=== PATIENT | male | born 1940 | race Caucasian/White ===

== ENCOUNTER 2018-07-11 09:44 | Inpatient (IN) ==
[2018-07-11] MEDS ORDERED: NS 1,000 ML IV PRN (09:51)
--- NOTE | 2018-07-11 09:51 | PROVIDER DOCUMENTATION ---
HPI-General Adult - General Stated Complaint: DECREASED PO INTAKE Time Seen by Provider: 07/11/18 09:46 Source: patient, family, EMS, old records Allergies/Adverse Reactions: Patient Allergies Allergy/AdvReac Type Severity Reaction Status Date / Time No Known Allergies Allergy Verified 03/14/18 08:43 Home Medications: Home Medication List Medication Instructions Recorded Confirmed Last Taken Type Bupropion HCl [Bupropion Xl] 150 mg PO DAILY 08/23/15 08/23/15 08/23/15 08:00 History LISINOpril [Prinivil] 5 mg PO DAILY 08/23/15 08/23/15 08/23/15 08:00 History Levothyroxine [Synthroid] 25 microgm PO DAILY 08/23/15 08/23/15 08/23/15 08:00 History Metoprolol Tartrate 12.5 mg PO DAILY 08/23/15 08/23/15 08/23/15 08:00 History Tamsulosin [Flomax] 0.4 mg PO DAILY 08/23/15 08/23/15 08/23/15 08:00 History Acetaminophen [Tylenol] 650 mg PO Q6H PRN PRN #0 tablet 08/26/15 Unknown Rx Docusate Sodium [Colace] 200 mg PO QHS #0 capsule 08/26/15 Unknown Rx Ferrous Sulfate 325 mg PO WBREAKFAST #0 tablet 08/26/15 Unknown Rx Rivaroxaban [Xarelto] 10 mg PO DAILY #35 tablet 08/26/15 Unknown Rx - History of Present Illness -Gen Adult Nature of Presenting Problems: per EMS, pt lives alone but is checked ~ daily by his son who called them this a.m. pt reportedly has been 'dwindling' in recent days w/ very poor po intake, new confusion. per son pt has hx of dementia but is normally meaningfully conversant. pt offers no complaints. pt has hx of hip fx in , per son "never fully recovered" and has been primarily wheelchair dependent since (?). pt has hx of hypothyroid and HBP. was on Xarelto in past. Review of Systems - Adult - REVIEW OF SYSTEMS - ADULT ROS:: unobtainable per condition Constitutional: reports: no symptoms reported Eyes: reports: no symptoms reported Ears, Nose, Mouth & Throat: reports: no symptoms reported Cardiovascular: reports: no symptoms reported Respiratory: reports: no symptoms reported Gastrointestinal: reports: no symptoms reported Genitourinary: reports: no symptoms reported Musculoskeletal: reports: no symptoms reported Integumentary: reports: no symptoms reported Neurological: reports: no symptoms reported Psychiatric: reports: no symptoms reported Endocrine: reports: no symptoms reported Hematologic/Lymphatic: reports: no symptoms reported Allergic/Immunologic: reports: no symptoms reported All Other Systems: Reviewed and Negative Past History - Adult - PAST MEDICAL HISTORY-ADULT Review of Records: reports: Old Records Reviewed Cardiovascular: reports: CAD - PRIOR SURGERIES/PROCEDURES Surgical/Procedure History: reports: hernia repair, other (open heart) - IMMUNIZATION STATUS Childhood Immunizations: See Nurse Assessment Flu Vaccine: See Nurse Assessment - FAMILY HISTORY Family History: reviewed, not pertinent Physical Exam-General - PHYSICAL EXAM-ADULT Initial Vital Signs Reviewed: Yes - CONSTITUTIONAL General Appearance: alert, no apparent distress, thin, slow to respond - EYES Eyes: PERRL/EOMI. negative: scleral icterus - HEAD, EARS, NOSE, MOUTH & THROAT HENMT: normocephalic/atraumatic - NECK Neck: full range of motion - RESPIRATORY Respiratory: lungs clear - CARDIOVASCULAR Cardiovascular: regular rate, rhythm - GASTROINTESTINAL (ABDOMEN) Abdominal Exam: non tender, soft - GENITOURINARY Male Genitalia: normal genitalia, circumcised Rectal Exam: deferred - LYMPHATIC Lymphatic: no adenopathy - MUSCULOSKELETAL Back Exam: no vertebral tenderness, other (patient has ~ 2% BSA stage 2 pre- sacral decubitus). negative: CVA tenderness Extremity: negative: deformity, tenderness Peripheral Pulses: radial (R): 2+, radial (L): 2+ - SKIN Integumentary: normal color, warm/dry. negative: normal turgor, cyanosis, ecchymosis, embolic lesions, purpura, rash - NEUROLOGIC Neurologic: head resident II-XII nml as tested, no motor/sensory deficits (no obvious asymmetry of tone, power.) - PSYCHIATRIC Psych/Mental Status: normal mood/affect, normal thought content, other (pt is responsive verbally to questioning at this time, but knows only that he's in an "[facility]," unsure why he is here. cannot name "Varinder" (son says this is not consistent w/ his baseline).) Progress - PLAN OF CARE/RESULTS Progress/Plan/Lab Results: U/A appears to show definite UTI. given MSE changes will consult for admission. needs wound care and plan for ongoing OP wound care for sacral decubitus. discussed w/ Estrada (Hospitalist service) who agreed to admit (Dr. Hendricks). Result Diagrams: 07/11/18 10:10 07/11/18 10:10 Departure - Departure Date of Disposition Decision: 07/11/18 Time of Disposition Decision: 13:19 DIAGNOSIS: UTI (urinary tract infection), Altered mental status, Sacral decubitus ulcer, stage II Disposition: ADMITTED INPATIENT 09 Certified Medical Emergency: Emergent Condition: Stable Referrals and Follow-Ups: Betsy Batista MD [Primary Care Provider] - - Critical Care Note This patient required my direct & personal management of CC.: No Attestation - Physician/ MILLER Attestation The physician spent face to face time with patient:: Yes Advanced Practice Provider documentation review:: Supervising physician onsite and consulted in the evaluation and care of this patient. The physician did have a face to face encounter with the patient.
[2018-07-11 10:34] LABS: BASO# 0.01 X1000 (0.0-0.2); BASO% 0.1 % (0.0-0.8); EOS# 0.04 X1000 (0.0-0.7); EOS% 0.3 % (0.0-10.0); HEMATOCRIT 43.6 % (42.0-52.0); HEMOGLOBIN 14.8 g/dL (14.0-18.0); IMM GRAN# 0.03 X1000 (0.0-0.04); IMM GRAN% 0.3 % (0.0-0.5); LYMPH# 0.91 X1000 (1.2-3.4); LYMPH% 7.6 % (20.5-51.1); MCH 29.5 PG (27-31); MCHC 33.9 g/dL (33-37); MCV 86.9 FL (81-99); MONO% 5.9 % (1.7-9.3); NEUT# 10.25 X1000 (1.4-6.5); NEUT% 85.8 % (42.2-75.2); PLT 127 X1000 (130-400); RBC 5.02 XMIL (4.7-6.1); RDW 13.4 % (11.5-14.5); WBC 11.94 X1000 (4.8-10.8)
[2018-07-11 10:41] LABS: INR 1.03; PROTIME 14.3 Seconds (11.0-16.0)
[2018-07-11 10:42] LABS: PTT 31.6 Seconds (22.3-41.8)
[2018-07-11 10:49] LABS: URINE SOURCE CLEAN CATCH
[2018-07-11 10:52] LABS: AGAP 14; ALB/GLOB RATIO 1.1; ALBUMIN 3.5 g/dL (3.5-5.0); ALKALINE PHOSPHATASE 96 U/L (32-122); BUN 29 mg/dL (8-22); CALCIUM 9.4 mg/dL (8.8-10.2); CHLORIDE 96 mmol/L (98-107); COSMO 275; CREATININE 0.9 mg/dL (0.7-1.2); ESTIMATED GFR > 60; GLUCOSE 73 mg/dL (70-104); GOT 272 U/L (10-34); GPT 70 U/L (10-44); MAGNESIUM 1.9 mg/dL (1.5-2.7); POTASSIUM 4.7 mmol/L (3.5-5.1); SODIUM 135 mmol/L (136-145); TCO2 25 mmol/L (25-35); TOTAL BILIRUBIN 1.01 mg/dL (0.20-1.00); TOTAL PROTEIN 6.8 g/dL (6.3-8.3)
[2018-07-11 11:02] LABS: T4 6.96 ug/dL (4.60-12.00)
--- NOTE | 2018-07-11 11:02 | Diag Imaging Result Doc PS360 ---
CT HEAD W/O CONTRAST - 07/11/2018 INDICATION: altered MSE COMPARISON: 08/25/2015 FINDINGS: There is grossly stable moderate diffuse atrophy. There is worsening, now severely advanced periventricular white matter chronic microvascular disease. Stable old lacunae in the left basal ganglia. No intracranial mass or hemorrhage. IMPRESSION: Worsening chronic microvascular disease of the cerebral white matter. No acute abnormality. This exam was performed using automated exposure control, adjustment of mA or kV according to patient size, and/or use of iterative reconstruction technique Electronically signed by Remy De Dios 07/11/2018 11:00 AM
[2018-07-11 11:06] LABS: BILIRUBIN URINE NEGATIVE (NEGATIVE); BLOOD URINE LARGE (NEGATIVE); CLARITY CLOUDY (CLEAR); COLOR YELLOW; GLUCOSE URINE NEGATIVE (NEGATIVE); KETONE URINE 15 mg/dL (NEGATIVE); LEUKOCYTES URINE LARGE (NEGATIVE); NITRITE URINE POSITIVE (NEGATIVE); PROTEIN URINE TRACE mg/dL (NEGATIVE); UROBILINOGEN URINE 0.2 EU/dL (0.2-1.0)
[2018-07-11 11:06] LABS: TSH 6.37 uIUmL (0.27-4.20)
--- NOTE | 2018-07-11 11:06 | Diag Imaging Result Doc PS360 ---
EXAM: CHEST-PORTABLE HISTORY: stroke like symptoms TECHNIQUE: Portable chest COMPARISON: 08/23/2015 FINDINGS: The lungs are well expanded. The heart is not enlarged. There are sternal wires and surgical clips. The vessels are not distended. There are no infiltrates. Mild increased interstitial markings believed to be fibrosis. No effusion identified. IMPRESSION: Fibrosis Electronically signed by Samy Espinosa 07/11/2018 11:03 AM
[2018-07-11 11:10] LABS: URINE BACTERIA 3+ /HFP; URINE EPITHELIAL CELLS <10 /HPF (<10); URINE RBC 20-40 /HPF (<10); URINE WBC TNTC /HPF (<10)
--- NOTE | 2018-07-11 13:37 | EKG Report ---
Test Performed on : 07/11/2018 1:06:03 PM Test Reason : Stroke like symptoms Blood Pressure : / mmHG Vent. Rate : 064 BPM Atrial Rate : 064 BPM P-R Int : 206 ms QRS Dur : 080 ms QT Int : 420 ms P-R-T Axes : 096 050 075 degrees QTc Int : 433 ms Normal sinus rhythm. Low voltage QRS Septal infarct (cited on or before 23-AUG-2015) Abnormal ECG When compared with ECG of 23-AUG-2015 19:23, ST no longer depressed in Anterior leads Nonspecific T wave abnormality, worse in Lateral leads QT has lengthened Unconfirmed Result
[2018-07-11] MEDS ORDERED: ZOFRAN IV PRN (13:56)
[2018-07-11] MEDS ORDERED: TYLENOL PO PRN (13:56)
[2018-07-11] MEDS ORDERED: NS 1,000 ML IV ONE (13:56)
[2018-07-11] MEDS: ROCEPHIN 1 GM in NS 50 ML IV SCH (14:15)
[2018-07-11 14:29] LABS: UR AMPHETAMINES QUAL NONE DETECTED (NONE DETECT); UR BARBITUATES QUAL NONE DETECTED (NONE DETECT); UR BENZODIAZEPIN QUAL NONE DETECTED (NONE DETECT); UR CANNABINOIDS QUAL NONE DETECTED (NONE DETECT); UR COCAINE QUAL NONE DETECTED (NONE DETECT); UR METHADONE QUAL NONE DETECTED (NONE DETECT); UR OPIATES QUAL NONE DETECTED (NONE DETECT); UR OXYCODONE QUAL NONE DETECTED (NONE DETECT); UR PCP QUAL NONE DETECTED (NONE DETECT)
--- NOTE | 2018-07-11 14:32 | Diag Imaging Result Doc PS360 ---
CT THORAX W/O CONTRAST - 07/11/2018 INDICATION: Fibrosis COMPARISON: Chest x-ray 07/11/2018 FINDINGS: There is severe COPD. There is rather advanced pulmonary fibrosis with honeycombing in the lung bases. Airways are clear. No nodules or infiltrates. There are CABG changes. Heart and great vessels are otherwise normal. There is left renal hydronephrosis. There is a tiny calcified gallstone in the gallbladder. IMPRESSION: 1. Severe COPD. Severe pulmonary fibrosis. 2. Left renal hydronephrosis, the reason is unclear. 3. Tiny gallstone in the gallbladder. This exam was performed using automated exposure control, adjustment of mA or kV according to patient size, and/or use of iterative reconstruction technique Electronically signed by Remy De Dios 07/11/2018 2:30 PM
[2018-07-11 15:04] LABS: ALLEN TEST NO; BE -1.4 mmoll (-3.0-3.0); BLOOD TYPE ARTERIAL; HCO3-(ACT) 23.7 mmoll (20.0-26.0); METHB 0.6 % (0.0-1.5); O2(CT) 19.4 mL/dL (15.0-23.0); O2HB 92.6 % (95.0-99.0); PCO2(98.6) 30 mmHg (35-45); PO2(98.6) 67 mmHg (60-100); SAMPLE BLOOD; SAO2 94.6 % (95.0-100.0); THB 14.9 g/dL (11.5-17.4); pH(98.6) 7.46 (7.35-7.45)
[2018-07-11] MEDS: DUONEB (A & A) INH SCH ×3 (15:05→23:03)
[2018-07-11 15:07] LABS: MODALITY ROOM AIR
--- NOTE | 2018-07-11 16:08 | HISTORY AND PHYSICAL ---
PCP: Dr. Awan CHIEF COMPLAINT: Altered mentation. HISTORY OF PRESENT ILLNESS: Mr. Hahn is a 78-year-old male with a history of dementia, COPD, nicotine dependence, coronary artery disease, atrial fibrillation, hypothyroidism, who presents to the ER via his son with decreased mentation and responsiveness over the past few days. Mr. Hahn is typically wheelchair bound but lives by himself. Over the past few days every time his son comes to check on him he is a bit more lethargic and has not been eating or drinking much this morning. He was a bit more lethargic and his son felt it was necessary to bring him to the ER. He also has a decubitus ulcer of the sacrum. The patient , at this time is nonverbal, and not really following commands well, but his said his baseline is a bit better than that. There has not been any report of fevers. He has not had any nausea or vomiting. No diarrhea. Otherwise review of systems is fairly difficult to obtain at this time. His laboratory data and diagnostic evaluation is largely unremarkable. He does have a very minimal elevated white count, slightly thrombocytopenic and some mildly elevated liver function tests; however, he does have a clear and significant urinary tract infection. Given the failure to thrive, the UTI, and altered mentation it is felt the patient would need inpatient admission. PAST MEDICAL HISTORY: 1. COPD. 2. CAD. 3. Reports of atrial fibrillation, unclear if he is on anticoagulation. 4. Continued nicotine dependence. 5. Hypothyroidism. SURGICAL HISTORY: Coronary artery bypass grafting and hernia repair. SOCIAL HISTORY: He lives alone. His son checks on him daily. He does have a remote history of alcohol dependence, but no current alcohol or drug use per the son. He is retired from [employer] and [employer]. FAMILY HISTORY: Noncontributory at this time. ALLERGIES: No known drug allergies. HOME MEDICATIONS: No list has been compiled as of yet. PHYSICAL EXAMINATION: VITAL SIGNS: Blood pressure 135/76. Heart rate 62. Respiratory rate 14. O2 sat 96% on nasal cannula. GENERAL: This is a chronically ill, frail appearing, 78-year-old, male lying on the hospital bed in no acute distress, but clear encephalopathic. NEUROLOGIC: The patient's eyes open spontaneously. He does not follow commands and is nonverbal. He does make nonsensical sounds at times. HEENT: Head is atraumatic and normocephalic. Pupils are equal, round, and reactive to light. Oral mucosa is dry. NECK: Trachea is midline. There is no JVD. CHEST: Diminished at the bases but clear to auscultation. CV: Regular rate and rhythm. S1, S2 is noted. GI: Soft, nondistended, nontender. Bowel sounds are hypoactive. EXTREMITIES: No edema. Pulses 1+ bilaterally. DIAGNOSTIC DATA: Head CT shows chronic changes, nothing acute. EKG shows normal sinus rhythm, nonspecific T wave flattening. Chest x-ray shows mild increased interstitial markings believed to be fibrosis, sternal wires, and surgical clips present, nothing else acute. WBC 11.94, hemoglobin 14.8, hematocrit 43.6, platelet count 127. INR 1.03. Sodium 135, potassium 4.7 , chloride 96, CO2 25, anion gap 14, BUN 29, creatinine 0.9, glucose 73. Calcium 9.4, magnesium 1.9, T bili 1.01, AST 72, ALT 70, alk phos 96. Troponin negative. TSH 6.37, T4 6.96. UA clear, urinary tract infection. ASSESSMENT AND PLAN: 1. Metabolic encephalopathy: Likely a combination of volume depletion, protein calorie malnutrition, and urinary tract infection. Head CT does not show anything acute. We will check an ABG, ammonia level, and drug screen, monitor neuro status, and continue IV fluids and antibiotics for UTI. 2. Urinary tract infection: We will add Rocephin, cultures are pending. 3. Severe protein calorie malnutrition, failure to thrive: We have consulted physical therapy, social work, and nutrition. We will continue diet, add supplementation if needed, we will check iron studies, vitamin D, and treat accordingly. 4. Coronary artery disease: No evidence of angina or acute coronary syndrome at this time. We will monitor tele. 5. Hypothyroidism: We will continue Synthroid once dosage is verified. 6. Elevated liver function tests: We will check a hepatitis panel, alcohol level was already done and found to be negative. Toxicology screen is pending. Abdominal exam is benign. We will monitor for now. Would consider abdominal imaging if any worsening. 7. Deep venous thrombosis prophylaxis with SCDs. Further recommendations to follow. Dictated by BARBARA Deleon for Arslan Hendricks MD cc: BARBARA Deleon Agree with H and P as above. the following is my own face to face assessment. Patient with advancing dementia and debility for several years but significantly decreased PO intake and increasing confusion over the last few days. awake but encephalopathic on exam, following no commands but moving all extremities, no clear focal deficits. initial workup suggesting metabolic encephalopathy due to underlying dementia and acute illness with UTI and decubitus ulcers. discussed situation with patient's son who looks in on him frequently and he is beginning the process of looking into assisted living vs other placement. [facility]
[2018-07-11 16:11] LABS: PREALBUMIN 11.3 mg/dL (20-40)
[2018-07-11 16:31] LABS: FERRITIN 928 ng/mL (30-400)
[2018-07-12] MEDS: NS 1,000 ML IV SCH ×2 (01:52→02:40)
[2018-07-12] MEDS ORDERED: CALMOSEPTINE OINTMENT TOP PRN (03:27)
[2018-07-12] MEDS: DUONEB (A & A) INH SCH ×6 (03:28→23:19)
[2018-07-12 07:38] LABS: HEMATOCRIT 42.1 % (42.0-52.0); HEMOGLOBIN 14.2 g/dL (14.0-18.0); MCH 29.9 PG (27-31); MCHC 33.7 g/dL (33-37); MCV 88.6 FL (81-99); MPV 10.9 FL (7.4-10.4); RBC 4.75 XMIL (4.7-6.1); RDW 13.5 % (11.5-14.5); WBC 7.74 X1000 (4.8-10.8)
[2018-07-12 08:02] LABS: AGAP 15; ALBUMIN 3.2 g/dL (3.5-5.0); ALKALINE PHOSPHATASE 88 U/L (32-122); BUN 22 mg/dL (8-22); CALCIUM 8.7 mg/dL (8.8-10.2); CHLORIDE 102 mmol/L (98-107); COSMO 280; CREATININE 0.7 mg/dL (0.7-1.2); ESTIMATED GFR > 60; GLUCOSE 74 mg/dL (70-104); GOT 205 U/L (10-34); GPT 65 U/L (10-44); POTASSIUM 3.5 mmol/L (3.5-5.1); SODIUM 139 mmol/L (136-145); TCO2 22 mmol/L (25-35); TOTAL BILIRUBIN 0.64 mg/dL (0.20-1.00); TOTAL PROTEIN 6.3 g/dL (6.3-8.3)
[2018-07-12] MEDS ORDERED: LOVENOX SUBQ SCH (09:00)
[2018-07-12] MEDS ORDERED: XARELTO PO SCH (09:43)
[2018-07-12 10:11] LABS: HEPATITIS PROFILE ACUTE SEE COMMENTS
[2018-07-12] MEDS: CALMOSEPTINE OINTMENT TOP SCH ×3 (10:39→18:48)
[2018-07-12] MEDS: FLOMAX PO SCH (11:19)
[2018-07-12] MEDS: WELLBUTRIN XL PO SCH (11:19)
[2018-07-12] MEDS: SYNTHROID PO SCH (11:20)
[2018-07-12] MEDS: NICODERM PATCH TD SCH (14:48)
[2018-07-12] MEDS: ROCEPHIN 1 GM in NS 50 ML IV SCH (14:49)
--- NOTE | 2018-07-12 15:07 | PROGRESS NOTE ---
DATE: 07/12/2018 INTERVAL HISTORY: Patient slightly more awake and interactive but remains quite encephalopathic. Afebrile, no acute events overnight aside from mild sinus bradycardia. REVIEW OF SYSTEMS: Unable to obtain secondary patient mental status. LABS: White count 7.7, hemoglobin 14.2, hematocrit 42.1, sodium 139, potassium 3.5, chloride 102, bicarb 22, BUN 22, creatinine 0.7, magnesium 2.0, total bilirubin 0.64, AST 205, ALT 65, albumin 3.2, total protein 6.3, hepatitis panel negative. Chest CT with severe COPD and pulmonary fibrosis, mild left hydronephrosis without clear etiology. Head CT with significant chronic microvascular disease but no acute process. Chest x- ray with fibrosis, no acute process. Urine culture with gram-negative rods. VITALS: T-max 98.3 degrees, pulse 83 currently, 53 earlier. respirations 20, blood pressure 98/70, O2 saturation 99% on room air. EXAM: General: No acute distress. Vitals as above. HEENT: Normocephalic, atraumatic. Moist mucous membranes. No cervical adenopathy. Cardiovascular: Regular rate and rhythm. No murmurs, rubs, or gallops. Pulmonary: Slightly decreased air entry but otherwise clear to auscultation bilaterally, no wheezing. Abdomen: Soft, nontender, nondistended. Bowel sounds positive. Extremities: Peripheral pulses intact. No clubbing, cyanosis or edema. Neurologic: Exam somewhat limited by patient mental status, no facial asymmetry. Pupils equal, round, reactive to light and moving all extremities. No focal deficits identified. Psychiatric: Awake, alert but oriented to person only, slightly more cooperative than previous but still quite confused. Skin: No new rashes or lesions identified. ASSESSMENT AND PLAN: 1. Metabolic encephalopathy likely multifactorial with underlying dementia and acute infection with urinary tract infection. Does appear to be improving with antibiotics and fluids. Continue antibiotics and monitor. 2. Urinary tract infection on Rocephin. Appears to be improving. Leukocytosis resolved. Urine cultures growing gram-negative rods. 3. Protein calorie malnutrition and failure to thrive. Physical therapy, social work, nutrition consulted. Does appear to be doing okay with diet although he requires some assistance. 4. Atrial fibrillation, patient with paroxysmal atrial fibrillation had been normal sinus rhythm aside from mild sinus adan occasionally during this hospitalization. Continue monitor on telemetry. 5. Hypothyroidism, continue home Synthroid, thyroid studies unremarkable. 6. Elevated liver function tests. Hepatitis panel negative. Repeats essentially normal. May be related to mild dehydration on admission. 7. Hyponatremia mild and now resolved. Continue to monitor. 8. Tobacco abuse. Patient given patch and counseled on cessation. 9. Decubitus ulcers bandaged, wound care and physical therapy as above. 10. Possible hydronephrosis identified on CT. No clear obstruction noted. Will obtain ultrasound to clarify, may need to consider Urology so consult depending on findings . 11. Deep vein thrombosis prophylaxis SCDs. 12. Situational depression. Mood appears stable aside from confusion as above, continue home Wellbutrin. [facility]
[2018-07-12] MEDS ORDERED: SEROQUEL PO PRN (15:58)
[2018-07-12] MEDS ORDERED: GEODON PO PRN (17:17)
[2018-07-12] MEDS ORDERED: ATIVAN ONE (17:28)
[2018-07-12] MEDS ORDERED: GEODON ONE (17:29)
[2018-07-12] MEDS ORDERED: STERILE WATER INJ. ONE (17:30)
[2018-07-12] MEDS ORDERED: GEODON PRN (18:06)
[2018-07-12] MEDS: XARELTO PO SCH (18:47)
--- NOTE | 2018-07-12 21:41 | Diag Imaging Result Doc PS360 ---
US RENAL 2 (RETROPER) COMPLETE - 07/12/2018 INDICATION: ? hydronephrosis seen on CT TECHNIQUE: COMPARISON: CT from 07/11/2018 FINDINGS: There is a large round mass posterior to the urinary bladder in the midline of the pelvis. This measures 5.7 cm. This is heterogeneously hypoechoic. There is moderate left renal hydronephrosis. There is a nodular area in the midpole the right kidney measuring 2.2 cm. No hydronephrosis on the right. Renal sizes are normal. The right kidney measures 11.1 x 4.8 x 6.3 cm. The left kidney measures 11.7 x 5 x 6.6 cm. IMPRESSION: Large indeterminate mass in the pelvis near the midline. Smaller mass in the right kidney. Moderate left hydronephrosis. CT abdomen pelvis is recommended, preferably with intravenous contrast. Electronically signed by Remy De Dios 07/12/2018 9:39 PM
[2018-07-13] MEDS: CALMOSEPTINE OINTMENT TOP SCH ×5 (02:16→20:35)
[2018-07-13] MEDS: ATIVAN IV PRN ×4 (02:56→16:58)
[2018-07-13] MEDS: DUONEB (A & A) INH SCH ×6 (03:44→22:42)
[2018-07-13 06:29] LABS: HEMATOCRIT 42.3 % (42.0-52.0); HEMOGLOBIN 14.3 g/dL (14.0-18.0); MCH 30.1 PG (27-31); MCHC 33.8 g/dL (33-37); MCV 89.1 FL (81-99); MPV 10.4 FL (7.4-10.4); RBC 4.75 XMIL (4.7-6.1); RDW 13.8 % (11.5-14.5); WBC 7.39 X1000 (4.8-10.8)
[2018-07-13] MEDS: SYNTHROID PO SCH ×2 (06:40→09:51)
[2018-07-13 06:53] LABS: AGAP 13; ALB/GLOB RATIO 1.1; ALBUMIN 3.3 g/dL (3.5-5.0); ALKALINE PHOSPHATASE 91 U/L (32-122); BUN 18 mg/dL (8-22); CHLORIDE 105 mmol/L (98-107); COSMO 291; CREATININE 0.7 mg/dL (0.7-1.2); ESTIMATED GFR > 60; GLUCOSE 105 mg/dL (70-104); GOT 158 U/L (10-34); GPT 71 U/L (10-44); POTASSIUM 4.3 mmol/L (3.5-5.1); SODIUM 145 mmol/L (136-145); TCO2 27 mmol/L (25-35); TOTAL BILIRUBIN 0.56 mg/dL (0.20-1.00); TOTAL PROTEIN 6.4 g/dL (6.3-8.3)
[2018-07-13] MEDS: NICODERM PATCH TD SCH (09:51)
[2018-07-13] MEDS: FLOMAX PO SCH (09:51)
[2018-07-13] MEDS: WELLBUTRIN XL PO SCH (09:51)
--- NOTE | 2018-07-13 12:24 | PROGRESS NOTE ---
DATE: 07/13/2018 INTERVAL HISTORY: A patient with significant sundowning last night. Became highly agitated and became quite aggressive with nursing staff. He was given Seroquel with little effect. He was subsequently given Geodon, but continued to be agitated, eventually given Ativan with improvement in agitation. Somewhat somnolent this morning. No other acute events overnight. REVIEW OF SYSTEMS: Unable to obtain secondary to patient's mental status. LABORATORIES: WBC 7.3, hemoglobin 14.3, hematocrit 42.3. Bilirubin 0.56, AST 158, ALT 71, alkaline phosphatase 91. Complete metabolic panel otherwise unremarkable. OBJECTIVE: Vitals: Temperature maximum 98.3 degrees, pulse 60, respirations 20 , blood pressure 120/61, O2 saturation 100% on room air. General: No acute distress. Vitals: As above. HEENT: Normocephalic, atraumatic. Moist mucous membranes. No cervical adenopathy. Cardiovascular: Regular rate and rhythm. No murmurs, rubs, or gallops. Pulmonary: Slightly decreased air entry globally, but otherwise clear to auscultation bilaterally. No wheezing, rales, or rhonchi. Abdomen: Soft, nontender, nondistended. Bowel sounds positive. Extremities: Peripheral pulses intact. No clubbing, cyanosis, or edema. Neurologic: Limited by patient's mental status and lack of cooperation, but no facial asymmetry. Pupils equal, round, reactive to light. Moving all extremities spontaneously. No focal deficits identified. Psychiatric: Slightly somnolent, but easily arousable. Remains oriented to person only. Falls asleep when not continuously stimulated. Skin: No new rashes or lesions identified. ASSESSMENT AND PLAN: 1. Metabolic encephalopathy, multifactorial with underlying dementia and acute infection with urinary tract infection. Initially improving with antibiotics and fluids, but significant sundowning last night and subsequently had to be chemically sedated and somewhat somnolent this morning. We will minimize sedating medications as possible. Continue antibiotics and monitor. 2. Urinary tract infection, appears to be improving. Leukocytosis resolved. Urine culture growing Serratia marcescens resistant only to cefazolin, Macrobid, and intermediate to tobramycin. The patient on Rocephin, which it is sensitive to. We will continue Rocephin and monitor. 3. Protein calorie malnutrition and failure to thrive. Physical Therapy, Social Work and Nutrition consulted. Requires some assistance with feeding, but adequate p.o. intake so far here. 4. Atrial fibrillation. Patient with paroxysmal atrial fibrillation, but has been in normal sinus rhythm here. Continue to monitor on telemetry. 5. Hypothyroidism. Continue home Synthroid. Thyroid studies unremarkable. 6. Elevated liver function tests. Hepatitis panel negative. Repeat essentially normal. May be related to mild dehydration on admission. 7. Hyponatremia, mild and now resolved. Continue to monitor labs. 8. Tobacco abuse. Patient given nicotine patch and counseled on cessation. 9. Decubitus ulcers, bandaged. Wound care and physical therapy as above. 10. Hydronephrosis. Initial CT showing possible hydronephrosis, but no clear obstruction. Renal ultrasound acquired to clarify. Ultrasound showing a large mass posterior to the urinary bladder, approximately 5.7 cm, which is causing moderate left renal hydronephrosis. Also with nodular area in the midpole of the right kidney, but no hydronephrosis on the right. We will get a dedicated CT of the abdomen and ask Nephrology their opinion. 11. Situational depression. Mood appears stable aside from confusion. Continue home Wellbutrin. 12. Deep vein thrombosis prophylaxis. SCDs. [facility]
--- NOTE | 2018-07-13 14:04 | Diag Imaging Result Doc PS360 ---
CT ABD/PELVIS W/IV CONT ONLY - 07/13/2018 INDICATION: ? bladder mass. hydronephrosis COMPARISON: CT from 08/23/2015 FINDINGS: There is severe rectal stool impaction which is presumably the source of the masslike appearance on the ultrasound. The urinary bladder appears grossly normal. There is severe vascular disease of the abdominal aorta with mild dilation measuring about 2.5 cm. 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 No visible radiodense renal stones. There is rather severe left hydroureteronephrosis. There is a density in the region of the left ureter orifice which may represent a UVJ stone. There are moderate degenerative changes of the spine. No acute or suspicious bony lesion. There is severe COPD in the lung bases. There are dense bibasilar infiltrates left greater than right compatible with bronchopneumonia. There is advanced coronary artery disease. There are CABG changes. There is constipation throughout the colon but no bowel obstruction or free air. IMPRESSION: 1. Severe rectal stool impaction. Diffuse constipation of the colon. No suspicious pelvic mass. 2. Rather severe left hydroureteronephrosis. There is a small density at the region of the left ureteral orifice which may represent an obstructing left UVJ stone. 3. 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 This exam was performed using automated exposure control, adjustment of mA or kV according to patient size, and/or use of iterative reconstruction technique Electronically signed by Remy De Dios 07/13/2018 2:02 PM
[2018-07-13] MEDS: ROCEPHIN 1 GM in NS 50 ML IV SCH (14:26)
[2018-07-13] MEDS: XARELTO PO SCH (16:55)
[2018-07-14 02:22] LABS: BASO# 0.02 X1000 (0.0-0.2); BASO% 0.2 % (0.0-0.8); EOS# 0.02 X1000 (0.0-0.7); EOS% 0.2 % (0.0-10.0); HEMATOCRIT 45.9 % (42.0-52.0); HEMOGLOBIN 15.3 g/dL (14.0-18.0); IMM GRAN# 0.02 X1000 (0.0-0.04); IMM GRAN% 0.2 % (0.0-0.5); LYMPH# 1.02 X1000 (1.2-3.4); LYMPH% 10.5 % (20.5-51.1); MCH 29.1 PG (27-31); MCHC 33.3 g/dL (33-37); MCV 87.4 FL (81-99); MONO# 0.58 X1000 (0.11-0.59); MPV 10.3 FL (7.4-10.4); NEUT# 8.05 X1000 (1.4-6.5); NEUT% 82.9 % (42.2-75.2); PLT 175 X1000 (130-400); RBC 5.25 XMIL (4.7-6.1); RDW 13.5 % (11.5-14.5); WBC 9.71 X1000 (4.8-10.8)
[2018-07-14 02:37] LABS: INR 1.88; PROTIME 23.1 Seconds (11.0-16.0)
[2018-07-14 02:38] LABS: PTT 44.7 Seconds (22.3-41.8)
[2018-07-14] MEDS: DUONEB (A & A) INH SCH ×6 (03:52→23:01)
[2018-07-14 06:30] LABS: HEMATOCRIT 43.4 % (42.0-52.0); HEMOGLOBIN 14.6 g/dL (14.0-18.0); MCH 29.9 PG (27-31); MCHC 33.6 g/dL (33-37); MCV 88.9 FL (81-99); RBC 4.88 XMIL (4.7-6.1); RDW 13.7 % (11.5-14.5); WBC 7.97 X1000 (4.8-10.8)
[2018-07-14 06:47] LABS: INR 1.6; PROTIME 20.3 Seconds (11.0-16.0)
[2018-07-14] MEDS: SYNTHROID PO SCH (07:03)
[2018-07-14 07:15] LABS: AGAP 15; ALBUMIN 3.3 g/dL (3.5-5.0); ALKALINE PHOSPHATASE 94 U/L (32-122); BUN 15 mg/dL (8-22); CHLORIDE 104 mmol/L (98-107); COSMO 289; CREATININE 0.6 mg/dL (0.7-1.2); ESTIMATED GFR > 60; GLUCOSE 93 mg/dL (70-104); GOT 125 U/L (10-34); GPT 67 U/L (10-44); MAGNESIUM 1.9 mg/dL (1.5-2.7); POTASSIUM 3.3 mmol/L (3.5-5.1); SODIUM 145 mmol/L (136-145); TCO2 26 mmol/L (25-35); TOTAL BILIRUBIN 0.62 mg/dL (0.20-1.00); TOTAL PROTEIN 6.6 g/dL (6.3-8.3)
[2018-07-14] MEDS: FLOMAX PO SCH (08:54)
[2018-07-14] MEDS: NICODERM PATCH TD SCH (08:54)
[2018-07-14] MEDS: CALMOSEPTINE OINTMENT TOP SCH ×4 (08:55→20:55)
[2018-07-14] MEDS ORDERED: MILK OF MAGNESIA PO PRN (11:20)
[2018-07-14] MEDS: ROCEPHIN 1 GM in NS 50 ML IV SCH (14:04)
[2018-07-14] MEDS: MIRALAX PO SCH ×2 (14:04→20:54)
[2018-07-14] MEDS: DULCOLAX PR SCH (14:04)
--- NOTE | 2018-07-14 14:05 | PROGRESS NOTE ---
DATE: 07/14/2018 INTERVAL HISTORY: The patient remains quite confused. Somewhat somnolent today. Received Ativan earlier. Ativan now discontinued. Nursing reporting some hematuria earlier today. No other acute events overnight REVIEW OF SYSTEMS: Unable to obtain secondary to patient's mental status. LABS: WBC 7.9, hemoglobin 14.6, hematocrit 43.4, and platelets of 172. Sodium 145, potassium 3.3, BUN 15, creatinine 0.6, and glucose 93, total bilirubin 0.62, AST 125, ALT 67, alkaline phosphatase 94. IMAGING: CT abdomen and pelvis with severe constipation, likely rectal impaction. No clear pelvic mass; although there is significant streaking artifact related to patient's hip replacements. Also with severe left hydroureteronephrosis, with a small density at the region of the left ureter orifice, which may represent an obstructing left stone. Also with severe atherosclerosis of all the vessels with complete obstruction of the left common iliac artery. VITALS: T-max 98.1 degrees, pulse 77, respirations 16, blood pressure 128/71, O2 sat 95% on room air. OBJECTIVE: General: No acute distress. Vitals: As above. HEENT: Normocephalic, atraumatic. Moist mucous membranes. No cervical adenopathy. Cardiovascular: Regular rate and rhythm. No murmurs, rubs, or gallops. Pulmonary: Moderately decreased air entry throughout, but otherwise clear to auscultation bilaterally. No wheezing, rales, or rhonchi. Abdomen: Soft, nontender, nondistended. Bowel sounds decreased but positive. Extremities: Peripheral pulses intact. No clubbing, cyanosis, or edema. Neurologic: Limited by patient's mental status, but no facial asymmetry. Pupils are equal, round, and reactive to light. Occasional movement of head and all extremities spontaneously. No focal deficits identified. Psychiatric: Remains slightly somnolent, but arousable, oriented to person at best. Skin: No new rashes or lesions identified. ASSESSMENT AND PLAN: 1. Metabolic encephalopathy, multifactorial with underlying dementia, acute infection with urinary tract infection, constipation. Improved initially somewhat, but then had significant sundowning with agitation. Was given significant sedating medication. Discontinuing Ativan to see if he will wake up more. Continue antibiotics and monitor. 2. Urinary tract infection. No fever or leukocytosis resolved. Urine culture growing out Serratia marcescens, which is sensitive to Rocephin, which we will continue. 3. Left hydronephrosis, suspected based on ultrasound confirmed on CT. Urology consulted. Urology recommendations pending. 4. Questionable pelvic mass, possible bladder mass identified on ultrasound, but not identified on CT. Will await urology recommendations. 5. Protein calorie malnutrition and failure to thrive. 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 Require some assistance with feeding, but adequate p.o. intake overall. 6. Atrial fibrillation. Patient with paroxysmal atrial fibrillation, but has been normal sinus rhythm here. Continue telemetry. 7. Hypothyroidism. Continue home Synthroid. Thyroid studies unremarkable. 8. Elevated liver function tests. Hepatitis panel negative. Repeat essentially normal. 9. Hyponatremia, mild and resolved. Continue to monitor laboratories. 10. Decubitus ulcers bandaged. Wound care physical therapy as above. 11. Tobacco abuse. 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 12. Severe chronic obstructive pulmonary disease. Patient with impressive emphysema on CT. No wheezing, however, and does not appear to be in exacerbation. We will monitor and give DuoNeb as needed. 13. Deep vein thrombosis prophylaxis. Sequential compression devices.
[2018-07-14] MEDS: GEODON IM PRN (17:19)
[2018-07-14] MEDS: STERILE WATER INJ. INJ PRN (17:19)
--- NOTE | 2018-07-14 23:34 | CONSULTATION ---
DATE OF CONSULTATION: 07/14/2018 ATTENDING AND REFERRING PHYSICIAN: Hospitalist. HISTORY OF PRESENT ILLNESS: This 78-year-old male with multiple medical problems was admitted with mental status changes. The patient is demented and it is very difficult to understand what he says when he talks. His family is not at bedside at this time. His urine culture grew Serratia marcescens sensitive to the antibiotic that he is on. A renal ultrasound was obtained that revealed left hydronephrosis and a probable bladder mass. A followup CT scan confirmed the hydroureteronephrosis down to an obstructed area in the distal ureter possibly a stone but is very difficult to determine secondary to the artifact from his hip prosthesis. He does not have a bladder mass. He does have atrial fibrillation and was on Xarelto. PAST MEDICAL HISTORY: COPD, coronary artery disease, history of atrial fibrillation, hypothyroidism. CURRENT MEDICATIONS: Documented on the chart. PAST SURGICAL HISTORY: Coronary artery bypass grafting, hernia repair, bilateral hip prosthesis. SOCIAL HISTORY: He smokes cigarettes. No alcohol use. He lives alone but his family is very close. ALLERGIES: He has no known drug allergies. REVIEW OF SYSTEMS: Cannot be obtained because I do not think he understands the questions. PHYSICAL EXAMINATION: General: A very cachectic, age apparent white male, who is cooperative. HEENT: Normal for age. Lungs: Clear. Cardiovascular: Regular rate and rhythm. Tachycardic. Abdomen: Scaphoid, soft. No hepatosplenomegaly or masses. Normal bowel sounds. : Uncircumcised male. He is in a diaper. He has had a bowel movement. Both testes are down and palpably normal. Rectal: Deferred until surgery. Extremities: No clubbing, cyanosis, or edema. Neuro: No focal deficits. LABORATORY EVALUATION: Has a white count of 7.97, hemoglobin 14.6, hematocrit of 43.4, platelets are 172,000. Serum electrolytes are normal. His potassium is somewhat low at 3.3, his BUN is 15, his creatinine is 0.6. CT stone search is as noted in the HPI. His urine culture grew Serratia marcescens sensitive to Rocephin and Levaquin. IMPRESSION: 1. Urinary tract infection on Serratia marcescens. Continue IV antibiotics. 2. Left hydroureteronephrosis secondary to a distal obstruction possibly a stone. 3. Question of bladder mass on ultrasound that was probably stool. His CT scan appears normal. RECOMMEND: Cystoscopic exam with left retrograde ureteral pyelogram and remove the obstruction if possible with placement of a double-J stent. Hold Xarelto. I do not believe the patient understood what is being recommended. Will discuss this with his family. Thank you for this consultation. cc: Davidson James MD
[2018-07-15] MEDS: DUONEB (A & A) INH SCH ×5 (04:00→19:35)
[2018-07-15 06:00] LABS: HEMATOCRIT 45.6 % (42.0-52.0); HEMOGLOBIN 15.3 g/dL (14.0-18.0); MCH 29.5 PG (27-31); MCHC 33.6 g/dL (33-37); MCV 87.9 FL (81-99); MPV 10.5 FL (7.4-10.4); RBC 5.19 XMIL (4.7-6.1); RDW 13.8 % (11.5-14.5); WBC 13.63 X1000 (4.8-10.8)
[2018-07-15 06:17] LABS: AGAP 14; ALB/GLOB RATIO 1.2; ALBUMIN 3.4 g/dL (3.5-5.0); ALKALINE PHOSPHATASE 94 U/L (32-122); BUN 22 mg/dL (8-22); CALCIUM 8.4 mg/dL (8.8-10.2); CHLORIDE 108 mmol/L (98-107); COSMO 299; CREATININE 0.8 mg/dL (0.7-1.2); ESTIMATED GFR > 60; GLUCOSE 122 mg/dL (70-104); GOT 82 U/L (10-34); GPT 57 U/L (10-44); MAGNESIUM 2.1 mg/dL (1.5-2.7); POTASSIUM 3.6 mmol/L (3.5-5.1); SODIUM 148 mmol/L (136-145); TCO2 26 mmol/L (25-35); TOTAL BILIRUBIN 0.65 mg/dL (0.20-1.00); TOTAL PROTEIN 6.3 g/dL (6.3-8.3)
[2018-07-15] MEDS: SYNTHROID PO SCH (06:27)
[2018-07-15] MEDS: CALMOSEPTINE OINTMENT TOP SCH ×4 (09:00→22:37)
[2018-07-15] MEDS: FLOMAX PO SCH (09:14)
[2018-07-15] MEDS: MIRALAX PO SCH ×2 (09:14→22:37)
[2018-07-15] MEDS: NICODERM PATCH TD SCH (09:14)
[2018-07-15] MEDS: DULCOLAX PR SCH (09:15)
[2018-07-15] MEDS: STERILE WATER INJ. INJ PRN (10:58)
[2018-07-15] MEDS: GEODON IM PRN (10:58)
[2018-07-15] MEDS: ROCEPHIN 1 GM in NS 50 ML IV SCH (12:34)
--- NOTE | 2018-07-15 13:11 | PROGRESS NOTE ---
DATE: 07/15/2018 INTERVAL HISTORY: The patient is much more awake, cooperative, and conversant today. Did have a couple bowel movements this morning. Awaiting cystoscopy with possible stone removal and stent placement by Urology. Denies current pain, dyspnea, cough, nausea, vomiting. REVIEW OF SYSTEMS: A 12 point review of systems is negative except as per interval history. LAB: WBC 13.5, hemoglobin 15.3, hematocrit 45.6. Sodium 148, potassium 3.6, chloride 108, bicarb 26, BUN 22, creatinine 0.8, glucose 122. AST 82, ALT 57, alkaline phosphatase 94, albumin 3.4, total protein 6.3. VITAL SIGNS: T-max 98.6, pulse 67, respirations 16, blood pressure 103/56, O2 saturation 97% on room air. OBJECTIVE: General: No acute distress. Vital signs: As above. HEENT: Normocephalic, atraumatic. Moist mucous membranes. No cervical adenopathy. Cardiovascular : Regular rate and rhythm. No murmurs, rubs, or gallops. Pulmonary: Moderately decreased air entry throughout, but otherwise clear to auscultation bilaterally. Abdomen: Soft, nontender, nondistended. Bowel sounds decreased but positive. Extremities: Peripheral pulses intact. No clubbing, cyanosis, or edema. Neurologic: Speech difficult to understand because of patient's lack of teeth, but cranial nerves appear to be intact. Globally weak but no focal deficits. Psychiatric: Awake, alert, oriented to person and place but not time. Skin: Decubitus ulcers bandaged. No new rashes or lesions identified. ASSESSMENT AND PLAN: 1. Metabolic encephalopathy, multifactorial with underlying dementia, acute infection with urinary tract infection, constipation. Did have 1 episode of major sundowning with agitation and aggression and was given significant sedating medication. Was somewhat somnolent afterwards but much improved this morning. Continue antibiotics and monitor. 2. Urinary tract infection. No fever. Urine culture growing Serratia marcescens which is sensitive to Rocephin, which we will continue. Likely discharge on Rocephin when we get to that point. 3. Left hydronephrosis. Urology consulted and plans on a cystoscopy with stent placement. Appears to be a likely stone at the junction. Initially some concern for mass, but on CT it appears this is more likely related to significant constipation/stool impaction rather than mass. 4. Protein calorie malnutrition and failure to thrive. 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 Some decreased p.o. intake yesterday with somnolence, but much improved this morning. 5. Constipation. Patient with fairly severe constipation on CT. Giving a bowel regimen. Did have a couple of bowel movements this morning. We will repeat x-ray in the morning to reassess. 6. Atrial fibrillation. Patient with paroxysmal atrial fibrillation, but has been largely in normal sinus rhythm here. Continue telemetry. 7. Hypothyroidism. Continue home Synthroid. 8. Elevated liver function tests. Hepatitis panel negative. Repeat studies essentially normal. 9. Hyponatremia, resolved now. Sodium now actually slightly high. Suspect he may be getting slightly dry with decreased p.o. intake yesterday. P.o. intake appears to be improved today. If hypernatremia continues, then may consider giving additional fluids tomorrow. 10. Decubitus ulcers. Ulcers bandaged. Wound care and physical therapy as above. 11. Tobacco abuse. Patient given nicotine patch and counseled on cessation. 12. Severe chronic obstructive pulmonary disease. Patient with extensive emphysema on CT. No signs of exacerbation at this time. We will monitor and give DuoNeb as needed. 13. Deep vein thrombosis prophylaxis. Pharmapods. [facility]
[2018-07-16] MEDS: DUONEB (A & A) INH SCH ×7 (00:03→23:15)
[2018-07-16] MEDS: GEODON IM PRN (03:41)
[2018-07-16] MEDS: STERILE WATER INJ. INJ PRN (03:41)
[2018-07-16] MEDS: SYNTHROID PO SCH (06:38)
[2018-07-16 06:52] LABS: AGAP 11; ALBUMIN 3.1 g/dL (3.5-5.0); ALKALINE PHOSPHATASE 91 U/L (32-122); BUN 24 mg/dL (8-22); CALCIUM 8.1 mg/dL (8.8-10.2); CHLORIDE 103 mmol/L (98-107); COSMO 288; CREATININE 0.7 mg/dL (0.7-1.2); ESTIMATED GFR > 60; GLUCOSE 107 mg/dL (70-104); GOT 60 U/L (10-34); GPT 46 U/L (10-44); MAGNESIUM 1.9 mg/dL (1.5-2.7); POTASSIUM 3.6 mmol/L (3.5-5.1); SODIUM 142 mmol/L (136-145); TCO2 28 mmol/L (25-35); TOTAL BILIRUBIN 0.61 mg/dL (0.20-1.00); TOTAL PROTEIN 6.1 g/dL (6.3-8.3)
--- NOTE | 2018-07-16 08:15 | Diag Imaging Result Doc PS360 ---
EXAM: KUB ABDOMEN - 07/16/2018 HISTORY: constipation TECHNIQUE: KUB abdomen COMPARISON: 07/13/2018 CT abdomen/pelvis FINDINGS: There is a moderate to large amount retained fecal debris in the colon consistent with constipation. The rectal fecal impaction which was seen on the prior CT appears to have resolved. The bowel gas pattern otherwise appears nonspecific and nonobstructive. There is a stone noted at the right kidney. IMPRESSION: Constipation. Apparent resolution of prior rectal fecal impaction. Electronically signed by Lokesh Hughes 07/16/2018 8:12 AM
[2018-07-16] MEDS ORDERED: XYLOCAINE-MPF 2% ONE (11:33)
[2018-07-16] MEDS ORDERED: DIPRIVAN 1% ONE (11:33)
[2018-07-16] MEDS ORDERED: FEMARA PO SCH (12:00)
[2018-07-16] MEDS ORDERED: NEOSPORIN G.U. IRRIGANT ONE (12:08)
[2018-07-16] MEDS: ROCEPHIN 1 GM in NS 50 ML IV SCH (12:10)
[2018-07-16] MEDS ORDERED: NORCO-7.5 PO PRN (13:49)
--- NOTE | 2018-07-16 14:53 | Diag Imaging Result Doc PS360 ---
EXAM: FLUROSCOPY CYSTO 07/16/2018 HISTORY: LT. STONE, LASER, LT STENT PLACEMENT TECHNIQUE: 11 images, 16 seconds fluoroscopy time, 0.22 mGy. COMMENT: Ureteroscopy and stent placement were performed on the left by Dr. James. The stone which was apparently present at the UVJ on the left was removed during the procedure. There is an apparent stone or stones on the right side. IMPRESSION: Stone extraction and stent placement on the left. Right nephrolithiasis. Electronically signed by Jeff Seals 07/16/2018 2:50 PM
[2018-07-16] MEDS: CALMOSEPTINE OINTMENT TOP SCH ×3 (15:24→23:27)
[2018-07-16] MEDS: MIRALAX PO SCH ×2 (15:25→23:26)
[2018-07-16] MEDS: FLOMAX PO SCH (15:25)
[2018-07-16] MEDS: NICODERM PATCH TD SCH (15:25)
[2018-07-16] MEDS: DULCOLAX PR SCH (15:25)
[2018-07-16] MEDS: SEROQUEL PO SCH (23:26)
[2018-07-17] MEDS: GEODON IM PRN (03:13)
--- NOTE | 2018-07-17 03:28 | PROGRESS NOTE ---
DATE: 07/16/2018 INTERVAL HISTORY: The patient now is status post cystoscopy with removal of stone and left stent placement by urology this morning. Doing well after the procedure. Denies current pain. Lucero in place with good drainage. Denies nausea, vomiting, diarrhea, dysuria. Remains mildly but pleasantly confused. REVIEW OF SYSTEMS: A 12 point review of systems is negative except as per interval history. LABORATORY STUDIES: Sodium 142, potassium 3.6, BUN 24, creatinine 0.7, glucose 107. AST 60, ALT 46, total bilirubin 0.6. VITAL SIGNS: T-max 98.2 degrees, pulse 64, respirations 20, blood pressure 109/54, saturating 100% on room air. PHYSICAL EXAMINATION: General: No acute distress. Vitals: As above. HEENT: Normocephalic, atraumatic. Moist mucous membranes. No cervical adenopathy. The patient is edentulous. Cardiovascular: Regular rate and rhythm. No murmurs, rubs, or gallops. Pulmonary: Moderately decreased air entry throughout but otherwise clear to auscultation. Abdomen: Soft, nontender, nondistended. Bowel sounds positive. Extremities: Peripheral pulses intact. No clubbing, cyanosis, or edema. Neurologic: Speech difficult to understand secondary to being edentulous but cranial nerves appear to be intact. No focal deficits. Psychiatric: Awake, alert, and oriented to person and place but not time. Normal mood and affect. Skin: Sacral decubitus ulcer is bandaged. No new rashes or lesions identified. ASSESSMENT AND PLAN: 1. Metabolic encephalopathy, multifactorial with underlying dementia, acute infection, with urinary tract infection, and constipation, overall improved. Continue antibiotics and monitor. 2. Urinary tract infection. Remains afebrile. Urine culture growing Serratia marcescens, which is sensitive to Rocephin, which we will continue. Likely discharge on Omnicef when we get to that point. 3. Left hydronephrosis. Initial imaging somewhat questionable but eventually favored to represent obstructing stone. Urology consulted and performed cystoscopy with stone removal and stent placement earlier today. Initially some concern for mass but this is now favored to have been significant constipation/stool impaction rather than mass. 4. Protein calorie malnutrition and failure to thrive. Physical therapy, social work, and nutritional support on board. Good oral intake over the last couple days. 5. Constipation. Patient with fairly severe constipation on CT, improving on most recent x-ray. Continue bowel regimen as there is still some constipation seen. 6. Atrial fibrillation. Patient with paroxysmal atrial fibrillation, but has been largely in normal sinus rhythm on this hospitalization. Continue telemetry. 7. Hypothyroidism. Continue home Synthroid. 8. Elevated liver function tests. Hepatitis panel negative. Repeat studies trending down to near normal. No liver pathology identified on CT. Suspect fatty liver but we will monitor. 9. Hyponatremia, now resolved. Monitor labs. 10. Sickle decubitus ulcers. No signs of infection. Ulcer is bandaged. Wound care and physical therapy as above. 11. Tobacco abuse. Patient given a nicotine patch and counseled on cessation. 12. Severe chronic obstructive pulmonary disease. Patient with extensive emphysematous changes on CT. No signs of exacerbation at this time and oxygen saturation is acceptable on room air. We will monitor and give nebulizers as needed. 13. Deep venous thrombosis prophylaxis. Sequential compression devices.
[2018-07-17] MEDS: DUONEB (A & A) INH SCH ×6 (05:40→23:08)
[2018-07-17 06:02] LABS: BASO# 0.01 X1000 (0.0-0.2); BASO% 0.1 % (0.0-0.8); EOS# 0.13 X1000 (0.0-0.7); EOS% 1.7 % (0.0-10.0); HEMATOCRIT 40.7 % (42.0-52.0); HEMOGLOBIN 13.5 g/dL (14.0-18.0); IMM GRAN# 0.02 X1000 (0.0-0.04); IMM GRAN% 0.3 % (0.0-0.5); LYMPH# 1.63 X1000 (1.2-3.4); LYMPH% 21.4 % (20.5-51.1); MCH 29.4 PG (27-31); MCHC 33.2 g/dL (33-37); MCV 88.7 FL (81-99); MONO# 0.56 X1000 (0.11-0.59); MONO% 7.3 % (1.7-9.3); MPV 10.4 FL (7.4-10.4); NEUT# 5.28 X1000 (1.4-6.5); NEUT% 69.2 % (42.2-75.2); PLT 188 X1000 (130-400); RBC 4.59 XMIL (4.7-6.1); RDW 13.3 % (11.5-14.5); WBC 7.63 X1000 (4.8-10.8)
[2018-07-17 06:15] LABS: AGAP 11; BUN 17 mg/dL (8-22); CALCIUM 7.9 mg/dL (8.8-10.2); CHLORIDE 101 mmol/L (98-107); COSMO 281; CREATININE 0.8 mg/dL (0.7-1.2); ESTIMATED GFR > 60; GLUCOSE 102 mg/dL (70-104); POTASSIUM 3.5 mmol/L (3.5-5.1); SODIUM 140 mmol/L (136-145); TCO2 28 mmol/L (25-35)
[2018-07-17] MEDS: SYNTHROID PO SCH (06:43)
[2018-07-17] MEDS: CALMOSEPTINE OINTMENT TOP SCH ×4 (08:20→23:51)
--- NOTE | 2018-07-17 09:01 | OPERATIVE NOTE ---
PROCEDURE DATE: 07/16/2018 PREOPERATIVE DIAGNOSIS: Left distal ureteral obstruction with severe left hydroureteronephrosis. POSTOPERATIVE DIAGNOSES: 1. Left distal ureteral obstruction with severe left hydroureteronephrosis. 2. Severe anterior urethral stricture. PROCEDURES PERFORMED: 1. Urethral dilation. 2. Cystoscopic exam, left ureteroscopy, laser lithotripsy of a stone, stone basket extraction of fragments, placement of left double-J stent. 3. Placement of Lucero catheter. SURGEON: Davidson James M.D. ANESTHESIA: General via laryngeal mask. FINDINGS: Cystoscopic exam: Urethra with an approximate 10-Icelandic fossa navicularis stricture that was dilated to 22-Icelandic with the Kevin steel sounds. Prostate: Mild hypertrophy of the lateral lobes. Mildly elevated bladder neck, length approximately 3 cm. Bladder: Normal ureteral orifices bilaterally, with the left ureteral orifice bulging secondary to a distal ureteral mass. This was found to be a 10 mm stone. Grade 2 trabeculations. No papillary lesions. No diverticula. Left ureteroscopy reveals an 8 to 10 mm left distal stone with high- grade obstruction. Rectal exam reveals a prostate of about 30 grams, firm, but symmetrical. INDICATION FOR PROCEDURE: This 78-year-old male with increasing memory problems and confusion was noted to have significant left hydroureteronephrosis on CT stone search obtained for apparent abdominal pains. He has had bilateral hip replacements, and there was artifact in the area of the distal ureters, the reason for the obstruction could not be obtained. 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 General anesthesia via laryngeal mask was achieved. He was then placed in the low lithotomy position, and prepped and draped in the usual sterile fashion for cystoscopic exam. A 21-Icelandic sheath cystoscope was placed at the meatus, but would not advance. Closer inspection revealed a very tight fossa navicularis stricture. The Kevin steel sounds starting at 10- Icelandic was used to sequentially dilate this strictured area up to 22-Icelandic. The 21-Icelandic sheath cystoscope was then passed through the patient's urethra, prostate, and into the bladder with findings noted above. A 0.035 ZIPwire was passed through the cystoscope, engaged left ureteral orifice, and after some manipulation, was able to be pushed past the obstruction and up into the kidney. The cystoscope was removed, leaving the ZIPwire in place. The 7-Icelandic Storz semi-rigid ureteroscope was advanced to the patient's urethra, prostate, and into the bladder. A 0.035 Sensor wire was passed through the ureteroscope and into the left ureter. The ureteroscope was advanced over the Sensor wire, but beneath the ZIPwire up to the stone. The stone was impacted in the distal ureter, but with the placement of the wires, it was disimpacted and moved more proximal. The Sensor wire was removed. A 365 micron laser fiber was placed. The laser was set at 8 hertz and 8 scales, and the stone was fragmented. Approximately 100 joules was used. A 4- wire Nitinol basket was placed, and multiple passes were made to remove stone fragments. Some of these were sent to Pathology for analysis. The ureteroscope was removed. A 6-Icelandic, 28 cm double-J stent was passed over the ZIPwire and up into the kidney. The bladder end was directly visualized. The renal end was verified by fluoroscopic exam. Because of the patient's problem with confusion, the double-J stent removal string was removed. The bladder was drained. Cystoscope was removed. Rectal exam performed. He tolerated the procedure well. Estimated blood loss was 0. He was taken to the recovery room in good condition. cc: Davidson James MD
[2018-07-17] MEDS: MIRALAX PO SCH ×2 (14:21→23:51)
[2018-07-17] MEDS: FLOMAX PO SCH (15:21)
[2018-07-17] MEDS: ROCEPHIN 1 GM in NS 50 ML IV SCH (15:22)
[2018-07-17] MEDS: DULCOLAX PR SCH (16:23)
[2018-07-17] MEDS: PERIDEX MT SCH ×2 (16:23→23:51)
[2018-07-17] MEDS: NICODERM PATCH TD SCH (18:33)
[2018-07-17] MEDS: SEROQUEL PO SCH (23:50)
--- NOTE | 2018-07-18 05:35 | PROGRESS NOTE ---
DATE: 07/17/2018 SUBJECTIVE: The patient looks well. No major complaints. He is seen after surgery. OBJECTIVE: Blood pressure 111/72, heart rate 89, respiratory rate 16, and temperature 99 degrees.Cardiovascular: Regular rate and rhythm. Pulmonary: Bilateral breath sounds. Clear to auscultation. GI: Soft, nontender, and nondistended. Bowel sounds are positive. LABORATORY DATA: White count 7, hemoglobin and hematocrit 13 and 40. Basic was normal. PROBLEM LIST: 1. Left hydronephrosis and left ureterolithiasis. Urology has done a cystoscopy and ureteroscopy, and double J stent placement. Further orders will be per them afterwards. 2. Serratia marcescens urinary tract infection, currently sensitive to multiple medications including Rocephin. 3. Encephalopathy. He still seems a little bit confused but he is not belligerent or anything from that standpoint, and I think overall is improving. 4. Protein calorie malnutrition. We will continue nutritional supplementation. 5. Constipation. We will continue bowel regimen. 6. Atrial fibrillation. He has been stable on current medications. 7. Decubitus ulcers. We will continue wound care treatment. DISPOSITION: Unclear at this time. He does live alone. I am not sure how much he has been getting out of bed so we need to get a sense of his functional status. PT and OT have been consulted, but I see no documentation. Actually, I saw him yesterday and it does not look like he has done very much, but we will continue to follow and work with social work about discharge planning. Disposition is therefore uncertain at this time. I am not sure if he will need rehab services. I think he is approaching improvement. cc: Dat Fox MD
[2018-07-18] MEDS: DUONEB (A & A) INH SCH ×6 (05:39→23:10)
[2018-07-18 06:40] LABS: BASO# 0.03 X1000 (0.0-0.2); BASO% 0.4 % (0.0-0.8); EOS# 0.15 X1000 (0.0-0.7); HEMATOCRIT 41.7 % (42.0-52.0); HEMOGLOBIN 13.8 g/dL (14.0-18.0); IMM GRAN# 0.02 X1000 (0.0-0.04); IMM GRAN% 0.3 % (0.0-0.5); LYMPH# 2.19 X1000 (1.2-3.4); LYMPH% 29.6 % (20.5-51.1); MCH 29.6 PG (27-31); MCHC 33.1 g/dL (33-37); MCV 89.3 FL (81-99); MONO# 0.61 X1000 (0.11-0.59); MONO% 8.2 % (1.7-9.3); MPV 10.3 FL (7.4-10.4); NEUT% 59.5 % (42.2-75.2); PLT 240 X1000 (130-400); RBC 4.67 XMIL (4.7-6.1); RDW 13.4 % (11.5-14.5)
[2018-07-18] MEDS: SYNTHROID PO SCH (06:44)
[2018-07-18 07:20] LABS: AGAP 10; BUN 17 mg/dL (8-22); CALCIUM 8.6 mg/dL (8.8-10.2); CHLORIDE 102 mmol/L (98-107); COSMO 281; ESTIMATED GFR > 60; GLUCOSE 94 mg/dL (70-104); POTASSIUM 3.8 mmol/L (3.5-5.1); SODIUM 140 mmol/L (136-145); TCO2 28 mmol/L (25-35)
[2018-07-18] MEDS: FLOMAX PO SCH (08:31)
[2018-07-18] MEDS: MIRALAX PO SCH ×2 (08:31→20:52)
[2018-07-18] MEDS: NICODERM PATCH TD SCH (08:31)
[2018-07-18] MEDS: PERIDEX MT SCH ×2 (08:32→20:52)
[2018-07-18] MEDS: DULCOLAX PR SCH (08:32)
[2018-07-18] MEDS: CALMOSEPTINE OINTMENT TOP SCH ×4 (08:34→21:06)
[2018-07-18] MEDS: ROCEPHIN 1 GM in NS 50 ML IV SCH (14:48)
[2018-07-18] MEDS: SEROQUEL PO SCH (20:53)
--- NOTE | 2018-07-19 00:14 | PROGRESS NOTE ---
DATE: 07/18/2018 SUBJECTIVE: Patient has no major complaints. He is sitting up eating. He does seem a little bit confused but he is very pleasant. OBJECTIVE: Blood pressure 95/56, heart rate 63, respiratory 15, temperature 98.3 degrees 94 90% on room air.Cardiovascular: Regular rate and rhythm. Pulmonary: Bilateral breath sounds clear to auscultation. GI: Was soft, nontender, nondistended. Bowel sounds are positive. LAB: White count is 7, hemoglobin and hematocrit 13, 41, platelets of 240,000. Basic was normal. PROBLEM LIST: 1. Left hydronephrosis, hydroureter, urolithiasis. He is status post JJ placement, we will continue to follow. Dr. James is monitoring. 2. Serratia marcescens urinary tract infection. He is on Rocephin. Rocephin will be day 8 maybe complete 10 days and then will discontinue. 3. Encephalopathy with probably some underlying dementia. He seems stable currently. 4. Moderate protein calorie malnutrition. Will continue nutritional supplementation, monitor for improvement . 5. Atrial fibrillation, he is on regular medications now. He has previously been on Xarelto. I am not sure when we can reinitiate his medications. 6. Disposition. We will have to work with his insurance. They are not approving rehab but he is not able to get up and around on his own and he is a fall risk and he is on anticoagulation so I am not sure we have very many outpatient options for him. Continue to monitor. cc: Dat Fox MD
[2018-07-19] MEDS: DUONEB (A & A) INH SCH ×6 (03:10→23:20)
[2018-07-19] MEDS: LOVENOX SUBQ SCH (05:11)
[2018-07-19] MEDS: SYNTHROID PO SCH ×2 (05:11→06:16)
[2018-07-19 05:50] LABS: BASO# 0.03 X1000 (0.0-0.2); BASO% 0.4 % (0.0-0.8); EOS# 0.18 X1000 (0.0-0.7); EOS% 2.2 % (0.0-10.0); HEMATOCRIT 40.8 % (42.0-52.0); HEMOGLOBIN 13.5 g/dL (14.0-18.0); IMM GRAN# 0.02 X1000 (0.0-0.04); IMM GRAN% 0.2 % (0.0-0.5); LYMPH% 24.7 % (20.5-51.1); MCH 29.3 PG (27-31); MCHC 33.1 g/dL (33-37); MCV 88.5 FL (81-99); MONO# 0.69 X1000 (0.11-0.59); MONO% 8.5 % (1.7-9.3); MPV 10.1 FL (7.4-10.4); NEUT# 5.18 X1000 (1.4-6.5); PLT 228 X1000 (130-400); RBC 4.61 XMIL (4.7-6.1); RDW 13.4 % (11.5-14.5)
[2018-07-19 06:05] LABS: AGAP 12; BUN 18 mg/dL (8-22); CALCIUM 8.5 mg/dL (8.8-10.2); CHLORIDE 100 mmol/L (98-107); COSMO 278; ESTIMATED GFR > 60; GLUCOSE 104 mg/dL (70-104); POTASSIUM 3.8 mmol/L (3.5-5.1); SODIUM 138 mmol/L (136-145); TCO2 26 mmol/L (25-35)
[2018-07-19] MEDS: FLOMAX PO SCH (09:09)
[2018-07-19] MEDS: PERIDEX MT SCH ×2 (09:10→21:37)
[2018-07-19] MEDS: NICODERM PATCH TD SCH (09:10)
[2018-07-19] MEDS: DULCOLAX PR SCH (09:10)
[2018-07-19] MEDS: CALMOSEPTINE OINTMENT TOP SCH ×3 (09:10→18:55)
[2018-07-19] MEDS: MIRALAX PO SCH ×2 (09:10→21:37)
[2018-07-19] MEDS: ROCEPHIN 1 GM in NS 50 ML IV SCH (13:44)
[2018-07-19] MEDS: GEODON IM PRN (16:42)
[2018-07-19] MEDS: STERILE WATER INJ. INJ PRN (16:44)
[2018-07-19] MEDS: SEROQUEL PO SCH (21:34)
--- NOTE | 2018-07-19 23:38 | PROGRESS NOTE ---
DATE: 07/19/2018 SUBJECTIVE: The patient has no focal complaints. OBJECTIVE: Vital Signs: Blood pressure is 95/61, heart rate 74, respiratory rate 16, temperature 97.3 degrees. Cardiovascular: Regular rate and rhythm. Pulmonary: Bilateral breath sounds. Clear to auscultation. GI: Soft, nontender, nondistended. Bowel sounds were positive. LABORATORY STUDIES: White count 8, hemoglobin and hematocrit 13 and 40, platelets 228,000. Basic was normal. PROBLEM LIST: 1. Dementia, encephalopathy. He had a kind of bad reaction today, got very agitated, and not quite sure. He had some p.r.n. Geodon, which he responded to fairly well. I am going to go up on his Seroquel at night. There is not clearly a trigger for this. His white count is normal. No fevers. We will continue to monitor. We may need to consider a geriatric psychiatry evaluation. 2. Left hydronephrosis, hydroureter. He is status post J-J placement, and he seems to be stable. 3. Serratia marcescens urinary tract infection. He is on Rocephin. This will be day 9, I think, of that. I am going to go ahead and repeat his UA, just to make sure nothing changed. Hematuria is normal in this setting because he has J-J stents. We do not need to abnormally interpret this as disease, because it is a normal part of having the stent in place. 4. Moderate protein calorie malnutrition. We are going to continue supplementations. 5. Left hydronephrosis, hydroureter, urolithiasis. He seems to be doing good from that standpoint. DISPOSITION: Still pending rehab, but if he continues to be agitated, I think we will have to consider possibly a geriatric psychiatry referral. We will continue to follow. cc: Dat Fox MD
[2018-07-20] MEDS: CALMOSEPTINE OINTMENT TOP SCH ×4 (03:43→18:59)
[2018-07-20] MEDS: DUONEB (A & A) INH SCH ×6 (06:14→23:30)
[2018-07-20] MEDS: SYNTHROID PO SCH (06:48)
[2018-07-20] MEDS: LOVENOX SUBQ SCH (06:48)
[2018-07-20 07:00] LABS: BASO# 0.02 X1000 (0.0-0.2); BASO% 0.2 % (0.0-0.8); EOS# 0.18 X1000 (0.0-0.7); EOS% 1.8 % (0.0-10.0); HEMOGLOBIN 14.5 g/dL (14.0-18.0); IMM GRAN# 0.03 X1000 (0.0-0.04); IMM GRAN% 0.3 % (0.0-0.5); LYMPH# 1.85 X1000 (1.2-3.4); LYMPH% 18.5 % (20.5-51.1); MCH 29.1 PG (27-31); MCV 88.4 FL (81-99); MONO# 0.75 X1000 (0.11-0.59); MONO% 7.5 % (1.7-9.3); MPV 10.6 FL (7.4-10.4); NEUT# 7.17 X1000 (1.4-6.5); NEUT% 71.7 % (42.2-75.2); PLT 247 X1000 (130-400); RBC 4.98 XMIL (4.7-6.1); RDW 13.6 % (11.5-14.5)
[2018-07-20 07:05] LABS: URINE SOURCE CLEAN CATCH
[2018-07-20 07:08] LABS: BILIRUBIN URINE NEGATIVE (NEGATIVE); BLOOD URINE MODERATE (NEGATIVE); COLOR YELLOW; GLUCOSE URINE NEGATIVE (NEGATIVE); KETONE URINE NEGATIVE (NEGATIVE); LEUKOCYTES URINE MODERATE (NEGATIVE); NITRITE URINE NEGATIVE (NEGATIVE); PROTEIN URINE 70 mg/dL (NEGATIVE); SP GRAVITY URINE 1.008; TURBIDITY URINE HAZY (CLEAR); UROBILINOGEN URINE NORMAL (NORMAL)
[2018-07-20 07:09] LABS: UR EPITHELIAL CELLS <10 /HPF (<10); URINE BACTERIA NEGATIVE /HPF; URINE RBC TNTC /HPF (<10); URINE WBC 20-40 /HPF (<10)
[2018-07-20 07:16] LABS: AGAP 12; BUN 16 mg/dL (8-22); CALCIUM 8.9 mg/dL (8.8-10.2); CHLORIDE 104 mmol/L (98-107); COSMO 285; CREATININE 0.9 mg/dL (0.7-1.2); ESTIMATED GFR > 60; GLUCOSE 107 mg/dL (70-104); SODIUM 142 mmol/L (136-145); TCO2 26 mmol/L (25-35)
[2018-07-20] MEDS: FLOMAX PO SCH (09:15)
[2018-07-20] MEDS: PERIDEX MT SCH ×2 (09:15→22:41)
[2018-07-20] MEDS: DULCOLAX PR SCH (09:15)
[2018-07-20] MEDS: MIRALAX PO SCH ×3 (09:15→22:43)
[2018-07-20] MEDS: NICODERM PATCH TD SCH (09:15)
[2018-07-20] MEDS: ROCEPHIN 1 GM in NS 50 ML IV SCH (13:27)
--- NOTE | 2018-07-20 19:09 | PROGRESS NOTE ---
DATE: 07/20/2018 SUBJECTIVE: The patient has no major complaints. OBJECTIVE: Vital Signs: Blood pressure is 111/71, heart rate 73, respiratory rate 16, temperature 97.4, 98% on room air. Cardiovascular: Regular rate and rhythm. Pulmonary: Bilateral breath sounds. Clear to auscultation. Gastrointestinal: Soft, nontender, nondistended. Bowel sounds are positive. LABORATORY DATA: White count is 10, hemoglobin and hematocrit 14 and 44, platelets 247,000. Basic was normal. PROBLEM LIST: 1. Dementia with encephalopathy. He seems to be better today. There are not any issues from that standpoint. He seems to be stable. We did go up on his Seroquel, that may have been enough. 2. Left hydronephrosis, hydroureter status post JJ stent placement. Urology is following. He seems to be doing okay. 3. Serratia marcescens urinary tract infection. He is on Rocephin. This will be day 10. I think we could consider stopping it after today's dose. Clinically, he seems to have stabilized but we will see how things look. In any case, we will stop after tomorrow's dose. Discharge condition is stable. We are looking at rehab options, although he has no place at this point. We are working with insurance company to help us with that. 4. Moderate protein calorie malnutrition. We will continue nutritional supplements. He is sitting up eating without difficulty right now. cc: Dat Fox MD
[2018-07-20] MEDS: SEROQUEL PO SCH (22:41)
[2018-07-21] MEDS: DUONEB (A & A) INH SCH ×6 (03:15→22:55)
[2018-07-21] MEDS: CALMOSEPTINE OINTMENT TOP SCH ×5 (03:40→20:28)
[2018-07-21] MEDS: SYNTHROID PO SCH ×2 (05:45→08:30)
[2018-07-21] MEDS: LOVENOX SUBQ SCH (05:45)
[2018-07-21] MEDS: NICODERM PATCH TD SCH (09:54)
[2018-07-21] MEDS: PERIDEX MT SCH ×2 (09:54→20:28)
[2018-07-21] MEDS: FLOMAX PO SCH (09:54)
[2018-07-21] MEDS: MIRALAX PO SCH ×2 (09:54→20:28)
[2018-07-21] MEDS: DULCOLAX PR SCH (09:54)
[2018-07-21] MEDS: ROCEPHIN 1 GM in NS 50 ML IV SCH (15:06)
[2018-07-21] MEDS ORDERED: ROCEPHIN 1 GM in NS 50 ML IV SCH (18:45)
--- NOTE | 2018-07-21 19:41 | PROGRESS NOTE ---
DATE: 07/21/2018 SUBJECTIVE: Patient resting comfortably in bed. Not in any obvious distress. OBJECTIVE: Vital Signs: As follows: Temperature is 98.1, pulse 58, respirations 18, blood pressure 102/64, O2 saturation 98%. HEENT: Atraumatic, normocephalic. Cardiovascular: S1, S2. Respiratory: Has evidence of good air entry bilaterally. Abdomen: Soft, nontender. Extremities: No evidence of edema. Central Nervous System: No obvious focal deficit noted. LABS: None. ASSESSMENT AND PLAN: 1. Encephalopathy probably secondary to a urinary tract infection. The patient seems to be doing well. 2. Urinary tract infection. Continue antibiotics. The patient is currently on Rocephin. 3. Left hydronephrosis. Urology consulted. 4. Atrial fibrillation. Heart rate is controlled. 5. Hypothyroidism. Continue levothyroxine. 6. COPD. Asymptomatic. Use nebulizers and bronchodilators as needed. 7. Tobacco use history. Nicotine patch. 8. Abnormal liver function test. Will repeat LFTs, check hepatitis panel as well as get abdominal ultrasound. 9. DVT prophylaxis, SCD. cc: Matthias Wolf MD
[2018-07-21] MEDS: SEROQUEL PO SCH (20:28)
[2018-07-22] MEDS: STERILE WATER INJ. INJ PRN (01:26)
[2018-07-22] MEDS: GEODON IM PRN (01:26)
[2018-07-22] MEDS: DUONEB (A & A) INH SCH ×4 (03:20→15:30)
[2018-07-22] MEDS: SYNTHROID PO SCH ×2 (05:33→06:07)
[2018-07-22] MEDS: LOVENOX SUBQ SCH (05:34)
[2018-07-22 06:52] LABS: BASO# 0.04 X1000 (0.0-0.2); BASO% 0.4 % (0.0-0.8); EOS# 0.74 X1000 (0.0-0.7); EOS% 8.1 % (0.0-10.0); HEMATOCRIT 41.9 % (42.0-52.0); IMM GRAN# 0.06 X1000 (0.0-0.04); IMM GRAN% 0.7 % (0.0-0.5); LYMPH# 1.59 X1000 (1.2-3.4); LYMPH% 17.3 % (20.5-51.1); MCH 29.9 PG (27-31); MCHC 33.4 g/dL (33-37); MCV 89.3 FL (81-99); MONO# 0.55 X1000 (0.11-0.59); MPV 10.2 FL (7.4-10.4); NEUT# 6.21 X1000 (1.4-6.5); NEUT% 67.5 % (42.2-75.2); PLT 212 X1000 (130-400); RBC 4.69 XMIL (4.7-6.1); RDW 13.7 % (11.5-14.5); WBC 9.19 X1000 (4.8-10.8)
[2018-07-22 07:12] LABS: AGAP 11; ALBUMIN 3.1 g/dL (3.5-5.0); ALKALINE PHOSPHATASE 103 U/L (32-122); BUN 19 mg/dL (8-22); CALCIUM 8.9 mg/dL (8.8-10.2); CHLORIDE 103 mmol/L (98-107); COSMO 274; CREATININE 0.8 mg/dL (0.7-1.2); ESTIMATED GFR > 60; GLUCOSE 96 mg/dL (70-104); GOT 29 U/L (10-34); GPT 24 U/L (10-44); POTASSIUM 4.2 mmol/L (3.5-5.1); SODIUM 136 mmol/L (136-145); TCO2 22 mmol/L (25-35); TOTAL BILIRUBIN 0.33 mg/dL (0.20-1.00); TOTAL PROTEIN 6.1 g/dL (6.3-8.3)
[2018-07-22] MEDS: PERIDEX MT SCH (10:28)
[2018-07-22] MEDS: MIRALAX PO SCH (10:32)
[2018-07-22] MEDS: DULCOLAX PR SCH (10:32)
[2018-07-22] MEDS: NICODERM PATCH TD SCH (10:32)
[2018-07-22] MEDS: CALMOSEPTINE OINTMENT TOP SCH ×2 (10:33→13:01)
[2018-07-22] MEDS: FLOMAX PO SCH (10:37)
--- NOTE | 2018-07-22 12:14 | Diag Imaging Result Doc PS360 ---
EXAM: US ABDOMEN-COMPLETE HISTORY: ABN LFTS TECHNIQUE: Abdominal ultrasound COMPARISON: None. FINDINGS: Normal spleen. No ascites. No focal hepatic abnormality. There is a tiny right upper pole renal cyst and there is a 1.0 cm nonobstructing right upper pole stone. No right-sided hydroureter abscess. The lower pole is poorly seen. Normal pancreas. The aorta is poorly seen. Normal inferior vena cava. Normal gallbladder. No stones. The left kidney is poorly seen. Questionable dilatation to the renal pelvis. IMPRESSION: 1.Fatty liver 2.Nonobstructing right renal stone Electronically signed by Samy Espinosa 07/22/2018 12:12 PM
[2018-07-22 12:27] LABS: HEPATITIS PROFILE ACUTE SEE COMMENTS
[2018-07-22] MEDS ORDERED: ROCEPHIN 1 GM in NS 50 ML IV SCH (15:00)
--- NOTE | 2018-07-22 17:15 | DISCHARGE SUMMARY ---
ADMISSION DATE: 07/11/2018 DISCHARGE DATE: 07/22/2017 PRIMARY CARE PROVIDER: Dr. Batista. PERTINENT PROCEDURES: 1. Head CT, worsening chronic microvascular disease of the cerebral white matter. No acute abnormality. 2. Chest CT, severe COPD, severe pulmonary fibrosis, left renal hydronephrosis, unclear reason, tiny gallstones in the gallbladder. 3. Abdomen and pelvis CT, severe rectal stool impaction, diffuse constipation of the colon, no suspicious pelvic mass, rather severe left hydro ureteral nephrosis. There is a small density at the region of the left ureteral orifice which may represent obstruction in the left UVJ stone complete obstruction or of the left common iliac artery. 4. Stone extraction and stent placement on the left secondary to right nephrolithiasis performed by Interventional Radiology. 5. Abdominal x-ray, constipation apparent resolution of prior rectal fecal impaction. 6. Urethral dilatation cystoscopic exam a left ureteroscopy, laser lithotripsy of a stone with stone basket extraction of fragments, placement of a double-J stent as well as a Lucero catheter performed by Dr. James . 7. Abdominal ultrasound fatty liver, nonobstructing renal stones. 8. Decubitus ulcer to sacrum POA. DISCHARGE DIAGNOSES: 1. Dementia with encephalopathy improved and stable. His Seroquel was increased. 2. Left hydronephrosis, hydroureter status post double-J stent placement, followed by urology. 3. Serratia marcescens urinary tract infection, patient was on IV Rocephin and will be transitioned to Omnicef for 14 more days. 4. Moderate protein calorie malnutrition. The patient will continue with nutritional supplements and continue to encourage diet. 5. Coronary artery disease with no evidence of angina or acute coronary syndrome. 6. Hypothyroidism, continue Synthroid. 7. Elevated liver function tests. Hepatitis panel negative, alcohol level was negative. Liver functions have returned to normal. HOSPITAL COURSE: Briefly Mr. Hahn is a 78-year-old male who carries a past medical history of COPD, coronary artery disease, history of atrial fibrillation, hypothyroidism, dementia, nicotine dependence presented to the ED with a son with decreased mentation and responsiveness over a few days. Mr. Hahn is typically wheelchair bound but lives by himself. The son noticed over the past few days that every time he came to check on him he was a bit more lethargic and had not been eating or drinking much so he brought him to the ED. He also had a noted decubitus ulcer of the sacrum. The patient at the time of admission was nonverbal, not following any commands. There were no reported fever, nausea or vomiting. His laboratory diagnostic evaluation was largely unremarkable. He did have very minimal elevated white count, slightly thrombocytopenic and mildly elevated liver function tests however he did have a urinary tract infection. His head CT did show worsening chronic white matter disease but no acute findings of a stroke. The patient was placed in and started on IV antibiotics for his urinary tract infection. It did grow out Serratia marcescens, antibiotics were adjusted appropriately. Over the next several days with hydration and IV antibiotics his mentation has improved. He was also noted to have left hydronephrosis and a probable bladder mass. A followup CT scan confirmed a hydro ureteral nephrosis down to an obstructed area of the distal ureter, possibly a stone, so he underwent a urethral dilatation and cystoscopic left ureteroscopy laser lithotripsy of the stone and stone basket extraction of the fragments and placement of a left double-J stents by Dr. Davidson James. They did adjustments to his Seroquel that he has tolerated it well. He has been transitioned to p.o. antibiotics and is appropriate for discharge to rehab. VITAL SIGNS: At time of discharge temperature is 98.2 degrees, heart rate 66, respirations 16, blood pressure 119/63, O2 99% on room air. DISCHARGE DIET: Is regular with Ensure with each meal. DISCHARGE MEDICATIONS: 1. Wellbutrin XL 150 mg p.o. daily. 2. Synthroid 25 mcg p.o. daily. 3. Flomax 0.4 mg p.o. daily. 4. Colace 200 mg p.o. at bedtime. 5. Seroquel 50 mg p.o. at bedtime. 6. Tylenol 650 mg p.o. q.6 hours p.r.n. 7. Omnicef 300 mg p.o. b.i.d. for 7 more days. 8. Ferrous sulfate 325 mg p.o. with breakfast. 9. MiraLAX 17 g p.o. b.i.d. FOLLOWUP: Mr. Hahn is being discharged to rehab. He is to continue to take all medications as prescribed. He will need to be encouraged to follow regular diet and continue with supplementation. He is to follow up with his primary care provider Dr. Batista and Dr. Davidson James as instructed. He can return to the ED or call 911 for worsening of symptoms. Dictated by BARBARA Reich for Dat Fox MD cc: Davidson James MD [facility]
[2018-07-22 17:22] VITALS: BP 115/62
--- NOTE | 2018-07-23 09:33 | DISCHARGE SUMMARY ---
ADMISSION DATE: 07/11/2018 DISCHARGE DATE: 07/22/2018 The patient on the day of discharge is doing well. No major complaints. He seems to be doing well, sitting up, and eating. He is a bit confused, but too weak really to go home. His physical exam is unremarkable. He is afebrile. Cardiovascular regular rate and rhythm. Pulmonary bilateral breath sounds. Clear to auscultation. White count is 9 and creatinine 0.8. He will need follow up with Dr. James when he gets out of rehab. He is going to go home on Omnicef based on sensitivities for the Serratia. He should be sensitive to Omnicef for another week. Other discharge medications as noted per discharge list. Bupropion 150 daily, Synthroid 25 daily, Flomax 0.4 daily, Colace 200 daily, Tylenol p.r.n., Omnicef 300 p.o. b.i.d. for 7 days, ferrous sulfate 325 daily, MiraLAX 17 b.i.d., and Seroquel 50 at bedtime. This is a [id number] encounter note with BARBARA Reich cc: Dat Fox MD
== END 2018-07-22 18:22 | DRG 660 ==
LOC: SUPCPDRO → ED 09:44 → 4N 09:45 → SUATTDRO 09:45
PROVIDERS: ATTEND Internal Medicine
CPT/HCPCS: 36415; 70450; 71010; 71045; 71250; 74000; 74018; 74177; 76000; 76700; 76770; 80048; 80053; 80074; 80101; 80301; 80307; 80320; 80324; 80345; 80346; 80353; 80358; 80361; 80365; 81001; 82055; 82140; 82306; 82360; 82607; 82728; 82746; 82805; 83540; 83550; 83735; 83992; 84134; 84436; 84443; 84484; 85025; 85027; 85610; 85730; 86038; 86039; 87077; 87088; 87186; 88300; 93005; 94640; 94761; 94799; 96361; 96365; 97110; 97163; 97167; 97530; 97535; 99285; A9270; C2617; G0431; G0434; G0479; G0480; G6040; J0696; J1650; J2060; J3486; J7030; Q9966; Q9967

== ENCOUNTER 2019-10-07 16:26 | Inpatient (IN) ==
[2019-10-07] MEDS ORDERED: ZOFRAN IV ONE (16:28)
[2019-10-07] MEDS ORDERED: MORPHINE IV ONE (16:28)
[2019-10-07] MEDS ORDERED: TORADOL IV ONE (16:29)
[2019-10-07 17:21] LABS: BASO# 0.02 X1000 (0.0-0.2); BASO% 0.2 % (0.0-0.8); EOS# 0.64 X1000 (0.0-0.7); EOS% 4.9 % (0.0-10.0); HEMATOCRIT 51.6 % (42.0-52.0); HEMOGLOBIN 18.4 g/dL (14.0-18.0); LYMPH# 1.76 X1000 (1.2-3.4); LYMPH% 13.6 % (20.5-51.1); MCH 30.6 PG (27-31); MCHC 35.7 g/dL (33-37); MCV 85.9 FL (81-99); MONO# 1.12 X1000 (0.11-0.59); MONO% 8.7 % (1.7-9.3); MPV 11.4 FL (7.4-10.4); NEUT% 72.6 % (42.2-75.2); PLT 165 X1000 (130-400); RBC 6.01 XMIL (4.7-6.1); RDW 13.7 % (11.5-14.5); WBC 12.94 X1000 (4.8-10.8)
[2019-10-07] MEDS ORDERED: CLINDAMYCIN 900 MG/NS 900 MG/50 ML IVPB IV ONE (17:25)
[2019-10-07] MEDS ORDERED: VANCOMYCIN 1 GM/NS 1 GM/250 ML IVPB IV ONE (17:25)
[2019-10-07 17:30] LABS: AGAP 12; ALB/GLOB RATIO 1.1; ALBUMIN 3.4 g/dL (3.5-5.0); ALKALINE PHOSPHATASE 110 U/L (32-122); BUN 22 mg/dL (8-22); CALCIUM 8.5 mg/dL (8.8-10.2); CHLORIDE 93 mmol/L (98-107); COSMO 270; CREATININE 0.8 mg/dL (0.7-1.2); ESTIMATED GFR > 60; GLUCOSE 112 mg/dL (70-104); GOT 37 U/L (10-34); GPT 32 U/L (10-44); POTASSIUM 4.5 mmol/L (3.5-5.1); SODIUM 133 mmol/L (136-145); TCO2 28 mmol/L (25-35); TOTAL BILIRUBIN 0.98 mg/dL (0.20-1.00); TOTAL PROTEIN 6.6 g/dL (6.3-8.3)
[2019-10-07] MEDS ORDERED: CLINDAMYCIN 900 MG/D5W 900 MG/50 ML IVPB IV ONE (17:45)
--- NOTE | 2019-10-07 18:34 | Diag Imaging Result Doc PS360 ---
EXAM: ELBOW COMPLETE RIGHT INDICATION: pain/swelling TECHNIQUE: 3 views COMPARISON: None. FINDINGS: There is no discrete fracture, dislocation, or significant intrinsic osseous lesion. The visualized joint spaces are essentially unremarkable. There is soft tissue edema around the arm. IMPRESSION: Soft tissue edema but no evidence of acute osseous abnormality. Electronically signed by Jim Hayes 10/07/2019 6:32 PM
--- NOTE | 2019-10-07 18:35 | PROVIDER DOCUMENTATION ---
This chart was entered by Nery Hayes Scribe, acting as scribe for Harrison Lora MD. HPI-Musculoskeletal Pain/Inj - GENERAL Stated Complaint: PAIN AND SWELLING IN R BICEPT Time Seen by Provider: 10/07/19 16:20 Source: patient, EMS - HX OF PRESENT ILLNESS-MUSKULOSKELTAL Nature of Presenting Problem: 79 yowm arrives via ems due to rt bicep pain and swelling ongoing for 1 month. pt pcp referred to er. pt baseline mild dementia. pt is a smoker. denies fall or injury. Severity in ED: mild Onset/Duration: other (1 month) Timing: still present, getting worse Modifying Factors: improves with: nothing Any recent injury?: No Recently seen or treated by another doctor?: Yes - UPPER EXTREMITY PAIN/INJURY Extremities Pain Location: other: right (bicep ) Context / Method of Injury: reports: unknown Associated Symptoms: reports: denies symptoms Review of Systems - Adult - REVIEW OF SYSTEMS - ADULT Constitutional: reports: no symptoms reported. denies: fever, fatique, night sweats Eyes: reports: no symptoms reported Ears, Nose, Mouth & Throat: reports: no symptoms reported Cardiovascular: reports: no symptoms reported Respiratory: reports: no symptoms reported Gastrointestinal: reports: no symptoms reported Genitourinary: reports: no symptoms reported Musculoskeletal: reports: see HPI, joint pain (rt bicep), joint swelling (rt bicep). denies: back pain, muscle weakness, neck pain Integumentary: reports: no symptoms reported Neurological: reports: no symptoms reported Psychiatric: reports: no symptoms reported Endocrine: reports: no symptoms reported Hematologic/Lymphatic: reports: no symptoms reported Allergic/Immunologic: reports: no symptoms reported All Other Systems: Reviewed and Negative Past History - Adult - PAST MEDICAL HISTORY-ADULT Review of Records: reports: Nursing Assessment Review, Medications Reviewed, Social history reviewed & non-contributory. Major Childhood Illnesses: reports: denies history Cardiovascular: reports: cardiac disease, CAD, hyperlipidemia Respiratory: reports: COPD Gastrointestinal: reports: denies history Obstetrical/Gynecological: reports: denies history Genitourinary: reports: denies history Musculoskeletal: reports: denies history Neurological: reports: dementia Endocrine/Immune: reports: thyroid disorder Other Conditions: reports: denies history - PRIOR SURGERIES/PROCEDURES Surgical/Procedure History: reports: CABG, hernia repair - IMMUNIZATION STATUS Childhood Immunizations: See Nurse Assessment Flu Vaccine: See Nurse Assessment - FAMILY HISTORY Family History: reviewed, not pertinent - SOCIAL HISTORY Smoking: cigarettes, less than 1 pack/day Provider spent 3-5 mins advising pt. on dangers of tobacco.: Discussed manners to quit use, and f/u contacts for add'l counseling. Substance Use: none/never Physical Exam-Injury Related - Physical Exam-Injury Related Initial Vital Signs Reviewed: Yes General Appearance: alert, no apparent distress. negative: cachetic, lethargic, combative Eyes: PERRL/EOMI Head, Ears, Nose, Mouth & Throat: normocephalic/atraumatic, moist mucous membranes, other (pt is [place]) Neck: non-tender, full range of motion, supple, normal inspection Respiratory: chest non-tender, normal breath sounds, no pleuratic chest pain, no respiratory distress, no accessory muscle use, rhonchi (scattered). negative: lungs clear, accessory muscle use, crackles, rales, wheezing Cardiovascular: normal peripheral pulses, regular rate, rhythm, other (pt has healed cabg sx scar on chest) Chest/Breast: deferred Abdominal Exam: normal bowel sounds, non tender, soft Male Genitalia: deferred Back Exam: normal inspection Extremity: normal range of motion, normal capillary refill, pelvis stable, erythema (intacubital foccia RUE), swelling (rt elbow to UE), tenderness (moderate on palp RUE), other (bronzing of bicep and skin RUE elbow area). negative: non-tender, normal inspection, deformity, pulse deficit, slow capillary refill DTR: bicep (R): 2+ Integumentary: normal color, warm/dry Neurologic: grossly normal, no motor/sensory deficits, other (pt has hx of dementia, at baseline) Psych/Mental Status: normal mood/affect, normal thought content, normal thought process, oriented x 3 - Glascow Coma Score Best Eye Response (Kathy): (4) open spontaneously Best Verbal Response (Hamilton): (5) oriented Best Motor Response (Kathy): (6) obeys commands Kathy Total: 15 Progress - PLAN OF CARE/RESULTS Progress/Plan/Lab Results: Vital Signs - 8 hr 10/07/19 16:27 Temperature 97.8 F Pulse Rate 70 Respiratory Rate 16 Blood Pressure 145/79 O2 Sat by Pulse Oximetry 93 L Laboratory Results - last 24 hr 10/07/19 10/07/19 10/07/19 16:40 16:40 16:40 WBC RBC Hgb Hct MCV MCH MCHC RDW Std Deviation Plt Count MPV Neut % (Auto) Lymph % (Auto) Boyd % (Auto) Eos % (Auto) Baso % (Auto) Neut # (Auto) Lymph # (Auto) Boyd # (Auto) Eos # (Auto) Baso # (Auto) Sodium 133 L Potassium 4.5 Chloride 93 L Carbon Dioxide 28 Anion Gap 12 BUN 22 Creatinine 0.8 Estimated GFR/1.73 m2 > 60 BUN/Creatinine Ratio 28 Glucose 112 H Calculated Osmolality 270 Calcium 8.5 L Total Bilirubin 0.98 AST 37 H ALT 32 Alkaline Phosphatase 110 C-Reactive Prot, Quant 42.02 H Total Protein 6.6 Albumin 3.4 L Globulin 3.2 Albumin/Globulin Ratio 1.1 Plasma Lactate 1.6 10/07/19 16:40 WBC 12.94 H RBC 6.01 Hgb 18.4 H Hct 51.6 MCV 85.9 MCH 30.6 MCHC 35.7 RDW Std Deviation 13.7 Plt Count 165 MPV 11.4 H Neut % (Auto) 72.6 Lymph % (Auto) 13.6 L Boyd % (Auto) 8.7 Eos % (Auto) 4.9 Baso % (Auto) 0.2 Neut # (Auto) 9.40 H Lymph # (Auto) 1.76 Boyd # (Auto) 1.12 H Eos # (Auto) 0.64 Baso # (Auto) 0.02 Sodium Potassium Chloride Carbon Dioxide Anion Gap BUN Creatinine Estimated GFR/1.73 m2 BUN/Creatinine Ratio Glucose Calculated Osmolality Calcium Total Bilirubin AST ALT Alkaline Phosphatase C-Reactive Prot, Quant Total Protein Albumin Globulin Albumin/Globulin Ratio Plasma Lactate Orders Category Date Time Status NEWS Score 2-4:Order NEWS Lactate Series NOW Care 10/07/19 16:32 Active Saline Loc NOW Care 10/07/19 16:28 Active CHEST-1 VIEW [RAD] Stat Exams 10/07/19 17:32 Taken ELBOW COMPLETE RIGHT [RAD] Stat Exams 10/07/19 16:26 Completed BLOOD CULTURE [BLDCUL] Stat Lab 10/07/19 17:05 Received C REACTIVE PROT QUANT [CHEM] Stat Lab 10/07/19 16:40 Completed CBC WITH ELECTRONIC DIFF [HEME] Stat Lab 10/07/19 16:40 Completed COMPREHENSIVE METABOLIC PANEL [CHEM] Stat Lab 10/07/19 16:40 Completed DIRECT STREP Stat Lab 10/07/19 18:09 Ordered INFLUENZA SCREEN A/B Stat Lab 10/07/19 18:16 Received LACTATE, PLASMA [CHEM] Stat Lab 10/07/19 16:40 Completed MISCELLANEOUS TEST-LAB [RF] Stat Lab 10/07/19 18:09 Uncollected Clindamycin 900 mg/D5w Med 10/07/19 17:45 Active 900 mg in 50 ml IV NOW Ketorolac [Toradol] Med 10/07/19 16:29 Discontinued 15 mg IV NOW ONE Morphine Med 10/07/19 16:28 Discontinued 2 mg IV NOW ONE Ondansetron [Zofran] Med 10/07/19 16:28 Discontinued 4 mg IV NOW ONE Vancomycin 1 gm/Ns Med 10/07/19 17:25 Discontinued 1 gm in 250 ml IV NOW Venous U/S Right Arm Routine Ther 10/07/19 Completed Result Diagrams: 10/07/19 16:40 10/07/19 16:40 - REASSESSMENT Reassessment #1 Time Reassessed: 18:10 Status: improving (with pain meds) - XRAY 1 XRAY: Right XRAY Study: Elbow Impression: Abnormal (read by me at 1811 - STS, no fracture, no FB) 2 XRAY Study: Chest Impression: Abnormal (Read by me at 1811 - Lingula infiltrate, post-op s ternotomy sutures, chronic fibrotic lung interstitial disease, infiltrate is no from prior CXR) - ULTRASOUND (By Radiology) 1 US Study: Upper Ext (RUE) Impression: Normal, See EMR Report (Impression: No DVT seen) - CONSULTS/PCP/HOSPITALIST Notification #1 *Consult/PCP/Hospitalist*: BARBARA Mcnally, paged at 1812 Time Discussed: 18:35 Consult Disposition: Admit, other (Locator Dr. Moe to see patient) Departure - Departure Date of Disposition Decision: 10/07/19 Time of Disposition Decision: 18:12 DIAGNOSIS: Cellulitis of right elbow, Lingular pneumonia, Tobacco use disorder Disposition: ADMITTED INPATIENT 09 Certified Medical Emergency: Emergent Condition: Stable Referrals and Follow-Ups: None,PCP [Primary Care Provider] - - Critical Care Note This patient required my direct & personal management of CC.: No Attestation - Physician/ MILLER Attestation Patient care was provided by Advanced Practice Provider:: No The physician spent face to face time with patient:: Yes Advanced Practice Provider documentation review:: Supervising physician onsite and consulted in the evaluation and care of this patient. The physician did have a face to face encounter with the patient. This chart was documented by the indicated scribe, (Nery Hayes, Tyra) and accurately reflects the services I performed and decisions made by me, Harrison Lora MD, as attested by the provider's signature.
--- NOTE | 2019-10-07 18:39 | Diag Imaging Result Doc PS360 ---
EXAM: CHEST-1 VIEW INDICATION: EDEMA TECHNIQUE: One view COMPARISON: 07/11/2018 FINDINGS: There are stable COPD changes. There is a focal opacity in the left lower lung zone suggesting pneumonia. There is no discrete pleural fluid collection or pneumothorax. There are stable CABG changes. Central vasculature is unremarkable. IMPRESSION: COPD and left lower lung zone opacity suggesting pneumonia. Electronically signed by Jim Hayes 10/07/2019 6:37 PM
--- NOTE | 2019-10-08 00:58 | HISTORY AND PHYSICAL ---
PRIMARY CARE PHYSICIAN: Betsy Batista MD. CHIEF COMPLAINT: Right elbow pain, swelling of 1 month's duration. HISTORY OF PRESENTING COMPLAINT: The patient is a 79-year-old with history of COPD, CAD status post CABG, hypothyroidism, who presents with right elbow pain and swelling of 1 month's duration. Of note, the patient has a history of baseline dementia and could not really get any information from him, as he could not articulate exactly why he came to the hospital and describe his symptoms. Most of the history was from the ER sign-out and from chart review. The patient was noted to have right biceps pain, swelling for a month. The patient's primary care referred the patient to the ER. Could not ascertain any history of fever, nausea, vomiting, any history of trauma as well to the elbow. The patient complained of pain while examining the patient. I could not elicit any shortness of breath. I could not ascertain if the patient was at baseline or the patient is off his baseline. Review of the chart shows the patient recently discharged in July 2019, and that time was known to be altered and with a history of dementia, but uncertain if this is actually patient's baseline at this time. In the ER, the patient was evaluated with a right elbow x-ray and also a chest x-ray, with the chest x-ray showing a left lower lobe pneumonia. The patient was given clindamycin and vancomycin in the ER and the hospitalist team was called to admit the patient. PAST MEDICAL HISTORY: COPD, CAD, questionable report of atrial fibrillation, hypothyroidism, and chronic tobacco dependence. SURGICAL HISTORY: CABG and hernia repair. ALLERGIES: No known drug allergies. HOME MEDICATION: 1. Tylenol 650 mg q.6 hours p.r.n. pain. 2. Bupropion 150 mg daily. 3. Omnicef 300 mg b.i.d. 4. Docusate 200 mg at bedtime. 5. Ferrous sulfate 325 mg daily. 6. Levothyroxine 25 mcg daily. 7. MiraLAX 17 g b.i.d. 8. Seroquel 50 mg at bedtime. 9. Tamsulosin 0.4 mg daily. FAMILY HISTORY: Could not obtain any family history from the patient at this time. SOCIAL HISTORY: The patient has a remote history of alcohol dependence, by chart review REVIEW OF SYMPTOMS: Difficult to ascertain Ten point review of system as patient has dementia and unable to answer questions appropriately PHYSICAL EXAMINATION: VITALS: Temperature was 97.8 degrees, pulse was 78, respiratory rate was 16, blood pressure was 145/79. GENERAL: An elderly male in no acute respiratory distress. HEENT: No pale. Anicteric. Not pale. Anicteric. Acyanosis. Mildly dry oral mucosa. CARDIOVASCULAR: S1, S2 heard. No murmurs, rubs or gallop. RESPIRATORY: Good air bilaterally. No wheeze. No crepitations. No added sound. ABDOMEN: No area of tenderness. Bowel sounds normoactive. No organomegaly noted. EXTREMITIES: The right elbow is swollen, tender as well with differential warmth. The swelling extends about 5 cm above and below the right elbow joint. Antalgic movement of the elbow noted. No bilateral pedal edema. NEUROLOGY: Alert, not oriented to time, place, or person. No gross focal neurological abnormality appreciated. SKIN: No skin changes apart from the right elbow erythema noted, as described above. LABS: WBC 12.9, hemoglobin 18.4, hematocrit 51.6, platelet count is 165,000. Sodium 133, potassium 4.5, chloride 93, bicarb 28, anion gap 12, BUN 22, creatinine 0.8. Glucose is 112, calcium 8.5, AST 37, ALT 32. C-reactive protein was 42. Lactate was 1.6. IMAGIN. Chest x-ray shows impression of COPD and left lower lung zone opacity suggesting pneumonia. 2. Right elbow x-ray shows soft tissue edema, but no evidence of acute osseus abnormality noted. ASSESSMENT AND PLAN: A 79-year-old with history of dementia, chronic obstructive pulmonary disease, coronary artery disease status post CABG, hypothyroidism, who presented with right elbow pain and swelling over the last 1 month. The patient was brought from the ER from his PCP. On evaluation in the ER, the patient's x-ray showed also a left lower lobe pneumonia. ADMISSION DIAGNOSES: 1. Right elbow cellulitis. 2. Left lower lobe pneumonia. 3. Volume depletion with hemoconcentration. 4. Possible acute metabolic encephalopathy, baseline unknown but with history of dementia 5. Suspected COVID 19 infection Chronic diagnosis 6. Coronary artery disease status post CABG. 7. Hypothyroidism. 8. Possible history of atrial fibrillation. 9. Benign prostatic hypertrophy. PLAN: 1. We will treat left lower lobe pneumonia with IV ceftriaxone and azithromycin. Sputum culture and expect improvement with antibiotic treatment. 2. Suspected Coronavirus 2019 infection. In the ER, given the chest x-ray finding of pneumonia, the patient was worked up for suspected Coronavirus 2019 infection. Although the patient does not have any fever, was not coughing at the time I was seeing the patient, but likely because of the x-ray finding of pneumonia patient wanted to be ruled out. We will follow up with the COVID-19 results. Doubt if this will be positive, but we will need to follow up with the results. Symptomatic treatment with Tylenol and cough medication if the patient starts coughing. 3. We will treat right elbow cellulitis with IV vancomycin. X-ray does not show any joint swelling or any aspirates that can be tapped from the joint. We will continue IV vancomycin for now. If no improvement, we will consider doing a follow-up MRI of the elbow to see if there is any possible drainable abscess of fluid from the joint. IV Ketoralac for pain management as needed. 4. Volume depletion with hemoconcentration. We will hydrate patient with IV normal saline. Expect improvement in sodium and chloride level with IV hydration. 5. Possible acute metabolic encephalopathy, unclear patient's baseline. The patient is altered at this time. Infection may be a cause, but suspect the patient most likely is close to his baseline given the recent discharge note that the patient was altered given his baseline dementia at that time. If any alteration in mentation, expect improvements with IV antibiotics. We will monitor closely and follow up with family to confirm patient's baseline. 6. Hypothyroidism. Will continue home levothyroxine dose. 7. Benign prostatic hypertrophy. Continue home tamsulosin dose. 8. Deep venous thrombosis prophylaxis. Lovenox. 9. Code status: Cannot ascertain as patient is altered. 10. Disposition: We will admit the patient inpatient. We will discharge when medically stable after adequate IV antibiotics and IV hydration. [facility]
[2019-10-08] MEDS ORDERED: SODIUM CHLORIDE 0.9% INJ PRN (01:04)
[2019-10-08] MEDS ORDERED: PHENERGAN IV PRN (01:04)
[2019-10-08] MEDS ORDERED: VANCOMYCIN IV PER PHARMACY MISC SCH (01:04)
[2019-10-08] MEDS ORDERED: LOVENOX SUBQ SCH ×2 (01:04→18:00)
[2019-10-08] MEDS ORDERED: TORADOL IV PRN (01:04)
[2019-10-08] MEDS: NS 1,000 ML IV SCH ×2 (01:45→20:40)
[2019-10-08] MEDS: ROCEPHIN 1 GM in NS 50 ML IV SCH (01:45)
[2019-10-08] MEDS ORDERED: VANCOMYCIN 1 GM/NS 1 GM/250 ML IVPB IV ONE (02:45)
[2019-10-08 03:14] LABS: URINE SOURCE CLEAN CATCH
[2019-10-08 03:22] LABS: BILIRUBIN URINE NEGATIVE (NEGATIVE); BLOOD URINE TRACE (NEGATIVE); COLOR YELLOW; GLUCOSE URINE NEGATIVE (NEGATIVE); KETONE URINE TRACE mg/dL (NEGATIVE); LEUKOCYTES URINE LARGE (NEGATIVE); NITRITE URINE POSITIVE (NEGATIVE); PROTEIN URINE 30 mg/dL (NEGATIVE); SP GRAVITY URINE 1.023; TURBIDITY URINE HAZY (CLEAR); UROBILINOGEN URINE NORMAL (NORMAL)
[2019-10-08 03:24] LABS: UR EPITHELIAL CELLS <10 /HPF (<10); URINE BACTERIA 1+ /HPF; URINE RBC <10 /HPF (<10); URINE WBC TNTC /HPF (<10)
[2019-10-08] MEDS: SYNTHROID PO SCH ×2 (05:57→07:08)
[2019-10-08] MEDS: ZITHROMAX 500 MG/NS 500 MG/250 ML IVPB IV SCH (05:57)
[2019-10-08 06:23] LABS: BASO# 0.09 X1000 (0.0-0.2); BASO% 0.7 % (0.0-0.8); EOS# 0.61 X1000 (0.0-0.7); EOS% 4.4 % (0.0-10.0); HEMATOCRIT 49.6 % (42.0-52.0); IMM GRAN# 0.05 X1000 (0.0-0.04); IMM GRAN% 0.4 % (0.0-0.5); LYMPH# 1.36 X1000 (1.2-3.4); LYMPH% 9.8 % (20.5-51.1); MCH 30.1 PG (27-31); MCHC 34.3 g/dL (33-37); MCV 87.9 FL (81-99); MONO# 0.72 X1000 (0.11-0.59); MONO% 5.2 % (1.7-9.3); MPV 10.1 FL (7.4-10.4); NEUT# 11.01 X1000 (1.4-6.5); NEUT% 79.5 % (42.2-75.2); PLT 136 X1000 (130-400); RBC 5.64 XMIL (4.7-6.1); RDW 13.6 % (11.5-14.5); WBC 13.84 X1000 (4.8-10.8)
[2019-10-08 06:47] LABS: AGAP 12; BUN 23 mg/dL (8-22); CHLORIDE 99 mmol/L (98-107); COSMO 273; CREATININE 0.8 mg/dL (0.7-1.2); ESTIMATED GFR > 60; GLUCOSE 86 mg/dL (70-104); POTASSIUM 4.7 mmol/L (3.5-5.1); SODIUM 135 mmol/L (136-145); TCO2 24 mmol/L (25-35)
[2019-10-08 07:11] LABS: INR 1.13; PROTIME 14.6 Seconds (11.0-16.0)
[2019-10-08] MEDS: MIRALAX PO SCH ×2 (08:23→20:42)
[2019-10-08] MEDS: WELLBUTRIN XL PO SCH (08:23)
[2019-10-08] MEDS: FLOMAX PO SCH (08:23)
[2019-10-08] MEDS: TYLENOL PO PRN ×2 (08:23→20:40)
--- NOTE | 2019-10-08 11:43 | Extremity Venous Study ---
PROCEDURE NAME: Venous U/S Right Arm - 10/07/2019 PROCEDURE: Right upper extremity venous duplex and color flow imaging study using the GE vivid E9 ultrasound system with 9L-D transducer. REFERRING PHYSICIAN: Dr. Lora from the emergency room. A 79-year-old male. STUDENT SERVICES VICE PRESIDENT: Heather Santo RVT. INDICATION: The patient is on anticoagulation. The right arm has been edematous for the last 2 to 3 days, rule out deep venous thrombosis. FINDINGS: The right internal jugular vein was compressible throughout its length without evidence of thrombus. The right subclavian and axillary veins had flow through them without thrombus. The right brachial vein in the arm was compressible throughout its length as was the superficial veins, cephalic and basilic veins in the right arm. The antecubital fossa and the small veins in the right forearm were all compressible. INTERPRETATION: No evidence of acute deep or superficial venous thrombosis right upper extremity. cc: Sanam Albert MD
--- NOTE | 2019-10-08 14:20 | EKG Report ---
Test Performed on : 10/08/2019 2:01:23 PM Test Reason : Baseline EKG Blood Pressure : / mmHG Vent. Rate : 068 BPM Atrial Rate : 277 BPM P-R Int : 000 ms QRS Dur : 078 ms QT Int : 376 ms P-R-T Axes : 000 -17 104 degrees QTc Int : 399 ms Atrial flutter. with variable AV block. ST & T wave abnormality, consider anterior ischemia Abnormal ECG When compared with ECG of 11-JUL-2018 13:06, Atrial flutter. has replaced Sinus rhythm. ST now depressed in Inferior leads ST now depressed in Anterior leads Nonspecific T wave abnormality now evident in Inferior leads T wave inversion now evident in Anterior leads Confirmed by Samia SOTELO, Manuel Narvaez ([id number]) on 10/08/2019 5:31:42 PM
--- NOTE | 2019-10-08 17:59 | PROGRESS NOTE ---
DATE: 10/08/2019 INTERVAL HISTORY: No acute events overnight. Mr. Hahn does not appear to be in any acute distress. Telemetry had atrial flutter so I repeated an EKG. SUBJECTIVE: Mr. Hahn appears pleasant. He denies any chest pain, shortness of breath. The only complaint he has is right elbow and right upper extremity pain. He denies cough, nausea, vomiting. He states he smokes about 1-1/2 pack a day. He denies abdominal pain or lower extremity edema. He states he lives by himself. REVIEW OF SYSTEMS: Positive for right elbow pain. Negative for known history of gout. Negative for chest pain. VITALS: Temperature 98.4 degrees, pulse 67, respiratory rate 19, blood pressure 104/61. He is saturating 96% on room air. PHYSICAL EXAMINATION: Oral cavity is moist. Not in acute distress.Lungs: Air entry bilaterally equal. No wheeze or rhonchi. He had crackles bilateral infrascapular region. Cardiovascular: S1, S2 normal. No murmur, rub, or gallop. Abdomen: Soft, nontender. Extremities: No lower extremity edema. He has significant swelling around right elbow region which involves from entire right upper extremity up to mid forearm. Neurological: He is alert. He is oriented to himself. He is not oriented to place or situation. He appears to have cognitive impairment, though his baseline is not entirely known. WBC 13,000, hemoglobin 17, platelet 136,000. His sodium is 135, chloride 99, BUN 23, creatinine 0.8. Urinalysis has pyuria. Intact bilateral radial pulses. MICROBIOLOGY: Blood culture and urine culture are in lab. IMAGING: Extremity venous study off right arm did not have any evidence for acute deep venous thrombosis. Elbow x-ray did not have a fracture or dislocation. There was soft tissue edema around the arm. Chest x-ray had infiltrate on the left lower lung. EKG performed had atrial flutter. ASSESSMENT AND PLAN: 1. Right arm cellulitis extending across elbow to proximal right forearm, unclear etiology. He does have swelling, mild redness. I could not see any erosion. He denies known history of gout. His uric acid level is normal. I will keep him on intravenous vancomycin and intravenous ceftriaxone. Follow up culture data. I may consider getting a CT scan or ultrasound of his right upper extremity. 2. Acute hypoxic respiratory failure due to left lower lobe pneumonia. COVID-19 testing has been sent out. The patient denies any expectoration. I will keep him on intravenous antibiotics. His influenza test was negative. I will follow up with chest x-ray as needed. 3. Acute cystitis without hematuria. I will keep him on intravenous antibiotics as mentioned above and follow up with final urine culture results. 4. Clinical volume depletion on presentation. I will continue him on intravenous fluids and follow up with [facility] tomorrow. 5. Atrial flutter. I will repeat EKG tomorrow. He currently appears rate well controlled and previously in 2019 he also had a wavy baseline of his heart rhythm. I am giving him a him a therapeutic dose of enoxaparin and follow-up repeat EKG tomorrow. 6. Others. I will continue his home bupropion, levothyroxine for hypothyroidism, MiraLAX for constipation, tamsulosin for benign prostatic hypertrophy, as well as quetiapine. DISPOSITION: I will monitor patient inside the hospital. I tried to reach out to patient's neighbor to get more historical details, but he could not pickling drum operator. I will continue to follow. 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 I discussed cellulitis, pneumonia, urine infection. We discussed about antibiotics, physical therapy, pending COVID testing. I allowed him to ask questions. And all his questions were answered. Time spent 35 minutes. cc: Prosper Beltran MD MTDD
[2019-10-08] MEDS: VANCOMYCIN 1,650 MG in NS 250 ML IV SCH (20:40)
[2019-10-08] MEDS: SEROQUEL PO SCH (20:41)
[2019-10-09] MEDS: ROCEPHIN 1 GM in NS 50 ML IV SCH (03:26)
[2019-10-09 03:53] LABS: URINE SOURCE CLEAN CATCH
[2019-10-09 04:00] LABS: BILIRUBIN URINE NEGATIVE (NEGATIVE); BLOOD URINE NEGATIVE (NEGATIVE); COLOR YELLOW; GLUCOSE URINE NEGATIVE (NEGATIVE); KETONE URINE 10 mg/dL (NEGATIVE); LEUKOCYTES URINE SMALL (NEGATIVE); NITRITE URINE NEGATIVE (NEGATIVE); PROTEIN URINE TRACE mg/dL (NEGATIVE); SP GRAVITY URINE 1.024; TURBIDITY URINE CLEAR (CLEAR); UROBILINOGEN URINE NORMAL (NORMAL)
[2019-10-09 04:01] LABS: UR EPITHELIAL CELLS <10 /HPF (<10); URINE BACTERIA NEGATIVE /HPF; URINE RBC <10 /HPF (<10)
[2019-10-09] MEDS: ZITHROMAX 500 MG/NS 500 MG/250 ML IVPB IV SCH (06:47)
[2019-10-09] MEDS: SYNTHROID PO SCH (06:50)
[2019-10-09] MEDS ORDERED: LOVENOX SUBQ SCH (07:15)
--- NOTE | 2019-10-09 07:17 | EKG Report ---
Test Performed on : 10/09/2019 06:54:23 AM Test Reason : Follow up EKG for A Flutter Blood Pressure : / mmHG Vent. Rate : 068 BPM Atrial Rate : 068 BPM P-R Int : 262 ms QRS Dur : 076 ms QT Int : 396 ms P-R-T Axes : -17 -23 159 degrees QTc Int : 421 ms Sinus rhythm. with 1st degree AV block. Anterior infarct , age undetermined ST & T wave abnormality, consider lateral ischemia Abnormal ECG When compared with ECG of 08-OCT-2019 14:01, Sinus rhythm. has replaced Atrial flutter. Anterior infarct is now present Confirmed by Samia SOTELO, Manuel Narvaez ([id number]) on 10/10/2019 11:48:41 AM
[2019-10-09] MEDS: WELLBUTRIN XL PO SCH (09:48)
[2019-10-09] MEDS: MIRALAX PO SCH ×2 (09:48→22:32)
[2019-10-09] MEDS: FLOMAX PO SCH (09:48)
[2019-10-09 14:13] LABS: AGAP 9; BUN 17 mg/dL (8-22); CALCIUM 8.3 mg/dL (8.8-10.2); CHLORIDE 105 mmol/L (98-107); COSMO 279; CREATININE 0.6 mg/dL (0.7-1.2); ESTIMATED GFR > 60; GLUCOSE 134 mg/dL (70-104); SODIUM 138 mmol/L (136-145); TCO2 24 mmol/L (25-35)
--- NOTE | 2019-10-09 15:31 | PROGRESS NOTE ---
DATE: 10/09/2019 INTERVAL HISTORY: No acute events overnight. Mr. Chase Hahn did not have any reported fever. SUBJECTIVE: Mr. Chase Hahn is pleasantly confused and is not able to contribute to the history meaningfully, though he does mention that his right arm was painful currently. VITALS: Temperature of 98.3 degrees, pulse 76, respiratory rate 18, blood pressure 132/84. He is saturating 98% on room air. PHYSICAL EXAMINATION: He is not in acute distress. HEENT: Oral cavity is moist. Lungs: Air entry bilaterally equal. No wheeze, rhonchi, or crackles. Cardiovascular: S1, S2 normal. No murmur or gallop. He is bradycardic. Abdomen: Soft, nontender. Extremities: No lower extremity edema. He has significant edema and warmth on the right arm and proximal forearm region. It is significantly tender. I did not see any pus pointing today, but the arm looks more swollen today than yesterday. Input and output positive 2.7 L. LABS: No CBC today. His BMP suggests resolution of hyponatremia, hypochloremia. His blood glucose is in acceptable range. Blood culture, influenza screen, throat culture has been negative. Urine culture has gram-negative rema. No new imaging today. ASSESSMENT AND PLAN: 1. Right arm cellulitis involving arm and proximal forearm. He had received right shoulder joint steroid injection outpatient about a week prior to current presentation. His x-ray of the arm did not have any definitive abscess and I could not see an external pus point. I will give 24 hours of intravenous antibiotic and if it does not get better, my plan will be to get a CT scan of his right upper extremity tomorrow. I will continue intravenous vancomycin, ceftriaxone. 2. Acute hypoxic respiratory failure due to left lower lobe pneumonia. It could also have been due to poor breathing. At the moment he is breathing well on room air. Influenza test was negative. I will continue intravenous antibiotic. His COVID-19 test is pending. 3. Acute cystitis without hematuria. Continue antibiotics. Follow up final results which currently grows gram-negative rods. 4. Clinical volume depletion, now improved. 5. Atrial flutter. It could have been related to bad EKG. I reviewed his previous EKG as well where he has a wavy baseline. Repeat EKG today morning has normal sinus rhythm. Has stopped his therapeutic anticoagulation. 6. Others. Continue home bupropion for anxiety; levothyroxine for hypothyroidism; MiraLAX for constipation; tamsulosin for BPH; quetiapine for agitation. He has history of dementia. DISPOSITION: Continue to monitor patient inside the hospital. Once COVID-19 test results negative tomorrow and if his right arm swelling does not improve despite 48 hours of intravenous antibiotics, my plan is to get the CT scan of the right upper extremity. I called the patient's gun repair clerk yesterday and had a detailed discussion about the patient's clinical condition with him. We discussed about cellulitis and I answered all of his questions. cc: Prosper Beltran MD
[2019-10-09] MEDS: SEROQUEL PO SCH (22:32)
[2019-10-09] MEDS: VANCOMYCIN 1,650 MG in NS 250 ML IV SCH (22:32)
--- NOTE | 2019-10-09 22:35 | Diag Imaging Result Doc PS360 ---
EXAM: CT EXT UPPER RIGHT W/CONT 10/09/2019 HISTORY: Evaluate for abscess/cellulitis of right upper ext TECHNIQUE: CT of the right arm. COMMENT: There is an apparent fracture of the upper mid humeral shaft. There are no prior plain radiographs available for comparison. There is some subcutaneous edema particularly medially in the upper arm. There is some hematoma formation around the fracture. Subcutaneous edema extends to the elbow and below. There is no evidence of a discrete abscess. IMPRESSION: Fracture of the humerus. Advise plain radiographs. Soft tissue swelling as described. Electronically signed by Jeff Seals 10/09/2019 10:32 PM
[2019-10-10] MEDS: ROCEPHIN 1 GM in NS 50 ML IV SCH (03:27)
[2019-10-10] MEDS: ZITHROMAX 500 MG/NS 500 MG/250 ML IVPB IV SCH (05:30)
[2019-10-10] MEDS: SYNTHROID PO SCH ×2 (05:30→06:06)
[2019-10-10] MEDS: TYLENOL PO PRN (05:30)
[2019-10-10 06:08] LABS: BASO# 0.03 X1000 (0.0-0.2); BASO% 0.3 % (0.0-0.8); EOS# 0.29 X1000 (0.0-0.7); EOS% 3.3 % (0.0-10.0); HEMATOCRIT 42.5 % (42.0-52.0); HEMOGLOBIN 14.6 g/dL (14.0-18.0); IMM GRAN# 0.02 X1000 (0.0-0.04); IMM GRAN% 0.2 % (0.0-0.5); LYMPH# 1.44 X1000 (1.2-3.4); LYMPH% 16.4 % (20.5-51.1); MCH 30.2 PG (27-31); MCHC 34.4 g/dL (33-37); MCV 87.8 FL (81-99); MONO# 0.96 X1000 (0.11-0.59); MONO% 10.9 % (1.7-9.3); MPV 10.6 FL (7.4-10.4); NEUT# 6.03 X1000 (1.4-6.5); NEUT% 68.9 % (42.2-75.2); PLT 169 X1000 (130-400); RBC 4.84 XMIL (4.7-6.1); RDW 13.4 % (11.5-14.5); WBC 8.77 X1000 (4.8-10.8)
[2019-10-10 06:24] LABS: AGAP 12; BUN 12 mg/dL (8-22); CALCIUM 8.2 mg/dL (8.8-10.2); CHLORIDE 104 mmol/L (98-107); COSMO 281; CREATININE 0.6 mg/dL (0.7-1.2); ESTIMATED GFR > 60; GLUCOSE 93 mg/dL (70-104); POTASSIUM 3.6 mmol/L (3.5-5.1); SODIUM 141 mmol/L (136-145); TCO2 25 mmol/L (25-35)
--- NOTE | 2019-10-10 09:11 | Diag Imaging Result Doc PS360 ---
EXAM: HUMERUS-RIGHT 10/10/2019 HISTORY: pain and fracture TECHNIQUE: Two views COMMENT: There is a fracture of the upper shaft of the humerus. There is osteopenia in the fracture zone. There is subcutaneous edema over the arm generally. IMPRESSION: Fracture proximal humeral shaft. Electronically signed by Jeff Seals 10/10/2019 9:08 AM
[2019-10-10] MEDS: MIRALAX PO SCH ×2 (09:23→22:16)
[2019-10-10] MEDS: WELLBUTRIN XL PO SCH (09:23)
[2019-10-10] MEDS: FLOMAX PO SCH (09:23)
--- NOTE | 2019-10-10 09:55 | ORTHOPAEDICS CONSULTATION ---
DATE: 10/10/2019 SUBJECTIVE: The patient is a pleasant 79-year-old male, who was admitted to the hospital 3 days ago with right biceps and elbow pain. The patient has underlying dementia and unable obtain history from the patient. Did attempt to make contact to the patient's family, unable reach them at this time. The patient was evaluated in the office on 09/10/2019 and had shoulder pain at that time. His x-ray a couple weeks prior to that of his shoulder revealed no obvious occult fracture or dislocation. The patient had clinical findings at that time of subacromial bursitis. He received a subacromial corticosteroid steroid injection. The patient has had according to the records had significant increasing pain and discomfort in the right biceps and elbow region. Unsure if there has been a recent injury. He was in the emergency room and x- rays of his elbow revealed no obvious occult fracture or dislocation. A CT scan of the right upper extremity caught the inferior aspect of a possible humeral fracture. The x-rays of the right humerus were obtained and revealed a nondisplaced spiral fracture of the proximal one-third of the humerus. Orthopedic consultation was requested. The patient is also admitted for left lower lobe pneumonia. PAST MEDICAL HISTORY: Significant for COPD, coronary artery disease, hypothyroidism, chronic tobacco dependence, dementia. PAST SURGICAL HISTORY: A CABG and hernia repair. ALLERGIES: No known drug allergies. HOME MEDICATIONS: 1. Tylenol 650 mg p.o. q.6 hours p.r.n. pain. 2. Bupropion 150 mg p.o. daily. 3. Omnicef 300 mg p.o. b.i.d. 4. Docusate 200 mg at bedtime. 5. Ferrous sulfate 325 mg p.o. daily. 6. Levothyroxine 25 mcg p.o. daily. 7. MiraLAX 17 g p.o. b.i.d. 8. Seroquel 50 mg p.o. at bedtime. 9. Tamsulosin 0.4 mg p.o. daily. PHYSICAL EXAMINATION: General: The patient has significant confusion. Extremities: His right upper extremity does have diffuse swelling around the elbow region and some local erythema, some diffuse tenderness palpation. His compartments are soft. He is able to flex some of his fingers. Has tenderness to palpation diffusely on the proximal humerus as well. He has discomfort with gentle movement. There is no crepitus. X-rays of the right humerus did reveal nondisplaced spiral fracture of the proximal one-third of the humerus with extension just inferior to the humeral head medially and extending distally to the proximal one-third. X-rays of the right elbow revealed no evidence of occult fracture or dislocation. There was noted to be some soft tissue edema. A CT scan of the right upper extremity caught the inferior aspect of the proximal one- third of the humeral shaft fracture, otherwise there is subcutaneous edema and no evidence of occult fracture at the elbow. IMPRESSION: Right nondisplaced proximal humeral fracture. PLANS: At this point, will place the patient in envelope sling. Will plan on nonoperative treatment. The patient will be nonweightbearing through right upper extremity. Will encourage range of motion of the elbow, wrist and fingers. cc: Chase Kent MD MTDD
[2019-10-10] MEDS: OXY IR PO PRN (12:24)
[2019-10-10] MEDS ORDERED: LEVAQUIN PO ONE (15:31)
--- NOTE | 2019-10-10 16:03 | PROGRESS NOTE ---
DATE: 10/10/2019 INTERVAL HISTORY: The patient underwent CT scan of his right upper extremity which detected that he has a fracture of the shaft of the humerus. His coronavirus 2019 test came back negative and he was taken off isolation and was transferred to non-isolation room. Orthopedic team was consulted overnight who recommended conservative management for his fracture with a sling. SUBJECTIVE: Mr. Hahn is pleasantly confused. He complains of right upper extremity pain. PHYSICAL EXAMINATION: vital signs: Temperature 97.4 degrees, pulse 69, respiratory 18, blood pressure 117/63, and he is saturating 95% on room air. general: Not in acute distress. heent: Oral cavity is moist. Lungs: Air entry bilaterally equal. No wheeze or rhonchi. He had mild crackles in left infraaxillary region. Cardiovascular: S1, S2 normal. No murmur, rub, or gallop. Abdomen: Soft, nontender. Extremities: He does not have lower extremity edema. Right upper extremity is swollen and significantly tender in the right arm elbow region. LABORATORIES: Suggestive of resolution of leukocytosis with WBC of 8000, hemoglobin 14.6, platelets 169,000. He has BUN 12, creatinine 0.6. MICROBIOLOGY: Urine culture is growing Serratia which is sensitive to Levaquin. ASSESSMENT AND PLAN: 1. Right arm swelling involving arm and proximal forearm. This is likely because of right humeral shaft fracture. CT scan did not detect any definitive abscess. I will stop intravenous antibiotics and will start him on oral Levaquin for pneumonia and urinary tract infection. Orthopedic team has recommended sling and nonoperative management. 2. Acute hypoxic respiratory failure due to left lower lobe pneumonia, now improved. His leukocytosis has resolved. His coronavirus disease 2019 test was negative. Start him on oral levofloxacin. 3. Acute cystitis without hematuria due to Serratia. Continue oral levofloxacin. 4. His clinical volume depletion has now replete improved and he appears rehydrated him; his atrial flutter was likely an artifact. Continue bupropion for anxiety; levothyroxine for hypothyroidism; MiraLAX for constipation; and tamsulosin for benign prostatic hypertrophy. I will hold his quetiapine which I suppose he is taking for dementia with behavioral disturbance considering its interaction with levofloxacin. DISPOSITION: The patient may benefit from going to the rehab considering his dementia and recent fracture. I have left a voice message for the patient's drug abuse worker to confirm the plan and accordingly I will place a Hvac Installer consult for future need for rehab. ADDENDUM: I got a call from his drug abuse worker. We discussed about Mr. Hahn's rehab needs and I answered all of his questions. He was in agreement with the rehab plans. cc: Prosper Beltran MD MTDD
[2019-10-10] MEDS: TYLENOL PO SCH (18:11)
[2019-10-11] MEDS: TYLENOL PO SCH ×5 (01:57→18:00)
[2019-10-11] MEDS: OXY IR PO PRN (03:55)
[2019-10-11] MEDS: SYNTHROID PO SCH ×2 (06:31→06:57)
[2019-10-11] MEDS ORDERED: SEROQUEL PO ONE (07:15)
[2019-10-11] MEDS ORDERED: HALDOL IV PRN (07:16)
[2019-10-11] MEDS: LEVAQUIN PO SCH (08:03)
[2019-10-11] MEDS: FLOMAX PO SCH (08:03)
[2019-10-11] MEDS: MIRALAX PO SCH ×2 (08:04→23:37)
[2019-10-11] MEDS: WELLBUTRIN XL PO SCH (09:38)
--- NOTE | 2019-10-11 11:10 | ORTHOPAEDICS PROGRESS NOTE ---
DATE: 10/11/2019 SUBJECTIVE: The patient is a pleasant, 79-year-old male. The patient has a right nondisplaced proximal humeral fracture. He is resting comfortably this morning. He is confused secondary to his dementia. PHYSICAL EXAMINATION: The patient's right upper extremity continues with diffuse swelling along the upper arm and down to the elbow and forearm. He is able to flex and extend all of his fingers. There is expected tenderness to palpation. IMPRESSIONS: Right nondisplaced proximal humeral fracture. PLAN: We will plan on nonoperative treatment. We would recommend a repeat x- ray in 7 to 10 days. He is stable from an orthopedic standpoint. Patient will be nonweightbearing through the right upper extremity. He will be maintained in a sling. Would encourage range of motion with the elbow, wrists, and fingers. cc: Chase Kent MD MTDD
--- NOTE | 2019-10-11 14:37 | PROGRESS NOTE ---
DATE: 10/11/2019 INTERVAL HISTORY: Orthopedic team had recommended conservative management and he was put on a sling. In the morning time he started becoming agitated and was screaming. He was given 1 time Seroquel after which he had calmed down. However he does not keep his sling on. SUBJECTIVE: Mr. Hahn is complaining of right arm pain. Otherwise denies any chest pain, shortness of breath or cough though he did cough during my examination. VITALS: Temperature 98.1 degrees, pulse 71, respiratory 19, blood pressure 119/64, he is saturating 95% on room air. PHYSICAL EXAMINATION: He is not in acute distress. Oral cavity is moist Air entry bilaterally equal. No wheeze or rhonchi. He has mild crackles in left infraaxillary region. S1, S2 normal. No murmur or gallop.Abdomen: Soft, nontender. No lower extremity edema. Right upper extremity has edema affecting entire extremity up to proximal forearm. He did not keep his sling on and it is tender on palpation, especially around distal arm and proximal forearm. LABS: Suggest no CBC or BMP today. ASSESSMENT AND PLAN: 1. Right arm and right proximal forearm edema due to right humeral shaft fracture. CT scan did not detect any abscess. Continue sling and nonoperative management as per orthopaedic team's recommendation. He would need repeat x-ray 7 to 10 days later. 2. Acute hypoxic respiratory failure due to left lower lobe pneumonia as well as acute cystitis without hematuria due to urinary tract infection due to Serratia now improved. Continue oral Levaquin for total of 7 days. His Coronavirus Disease 2019 test was negative. 3. Clinical volume depletion on presentation has improved. His atrial flutter was likely an artifact. Continue bupropion for anxiety, levothyroxine for hypothyroidism, MiraLAX for constipation, tamsulosin for benign prostatic hypertrophy, quetiapine and as-needed haloperidol for dementia with behavioral disturbance. I am holding quetiapine at the moment considering his interaction with Levaquin. DISPOSITION: Die Sinker, rehab consult has been placed. Yesterday I had a detailed discussion about his clinical condition including fracture, pneumonia, negative coronavirus with his forging die sinker and I had answered all of his questions. He was in agreement with the plan. Unfortunately patient does not have any family members as per the caregiver. cc: Prosper Beltran MD [facility]
[2019-10-12] MEDS: OXY IR PO PRN ×3 (00:09→23:55)
[2019-10-12] MEDS: TYLENOL PO SCH ×3 (02:25→17:01)
[2019-10-12] MEDS: SYNTHROID PO SCH (07:01)
[2019-10-12] MEDS: MIRALAX PO SCH ×2 (09:37→20:06)
[2019-10-12] MEDS: WELLBUTRIN XL PO SCH (09:37)
[2019-10-12] MEDS: FLOMAX PO SCH (09:37)
[2019-10-12] MEDS: LEVAQUIN PO SCH (09:37)
[2019-10-12 11:55] LABS: AGAP 15; BUN 15 mg/dL (8-22); CALCIUM 8.4 mg/dL (8.8-10.2); CHLORIDE 99 mmol/L (98-107); COSMO 276; CREATININE 0.7 mg/dL (0.7-1.2); ESTIMATED GFR > 60; GLUCOSE 96 mg/dL (70-104); POTASSIUM 3.9 mmol/L (3.5-5.1); SODIUM 138 mmol/L (136-145); TCO2 24 mmol/L (25-35)
--- NOTE | 2019-10-12 16:06 | EKG Report ---
Test Performed on : 10/12/2019 3:52:47 PM Test Reason : Tachycardia Blood Pressure : / mmHG Vent. Rate : 095 BPM Atrial Rate : 277 BPM P-R Int : 000 ms QRS Dur : 078 ms QT Int : 374 ms P-R-T Axes : 000 -22 248 degrees QTc Int : 469 ms Atrial flutter. with variable AV block. with premature ventricular or aberrantly conducted complexes. ST & T wave abnormality, consider anterolateral ischemia Prolonged QT Abnormal ECG When compared with ECG of 09-OCT-2019 06:54, Atrial flutter. has replaced Sinus rhythm. ST more depressed in Inferior leads Confirmed by Samia SOTELO, Manuel Narvaez ([id number]) on 10/12/2019 4:48:59 PM
[2019-10-12] MEDS: LOPRESSOR PO SCH ×2 (17:02→23:57)
[2019-10-12] MEDS: LOVENOX SUBQ SCH (17:02)
--- NOTE | 2019-10-12 17:40 | PROGRESS NOTE ---
DATE: 10/12/2019 INTERVAL HISTORY: Mr. Hahn has had irregular, erratic heart rate today in the morning time. He was found to be bradycardic with heart rate in 40s. Later on telemetry had called that his heart rate had jumped to 160s. He was asymptomatic, though he has dementia. SUBJECTIVE: He complains of right arm pain. VITAL SIGNS: Currently, temperature 98.5 degrees, pulse 93, respiratory rate 20, blood pressure 123/81. He is saturating 94% on room air. PHYSICAL EXAMINATION: General: He is not in acute distress. HEENT: Oral cavity is moist. Lungs: Air entry bilaterally equal. No wheeze, rhonchi. Mild crackles in left infrascapular region. Cardiovascular: S1, S2 normal. Irregularly irregular. No murmur or gallop. Extremities: He has right upper extremity edema extending up to the proximal forearm. He has significant tenderness in the entire right arm, which gets worse on movement at the shoulder joint. Currently, right upper extremity is in the sling. He does not have lower extremity edema. LABS: His BMP suggests potassium of 3.9, BUN 15, creatinine 0.7, magnesium is 1.8. No new microbiological or imaging data. EKG suggests atrial flutter with variable AV block with premature ventricular or aberrantly conducted complexes. He does have a QTc interval prolongation. ASSESSMENT AND PLAN: 1. Right arm and right proximal forearm edema on presentation due to right humeral shaft fracture. The circumstances in which he developed this fracture were not entirely clear as there was no clear-cut fall history. CT scan did not detect any abscess. Orthopedic team recommended nonoperative management with repeat x-ray of the humerus in 7 to 10 days. 2. Atrial flutter with variable AV block. He has had 3 EKGs during this hospital admission, 2 of them detected atrial flutter. At the time of my evaluation, his heart rate was 93. I will start him on metoprolol and increase anticoagulation dose to therapeutic. I will follow up with thyroid profile, echocardiogram to evaluate for structural heart abnormality as well as mitral valve disease. I will consult Cardiology tomorrow for further recommendations. 3. QTc prolongation: Stop Quetiapine and Levofloxacin. Follow up EKG tomorrow. 3. Acute hypoxic respiratory failure on presentation due to left lower lobe pneumonia as well as acute cystitis without hematuria due to Serratia urinary tract infection, now improved. He has completed 6 days of antibiotic course. Considering his mild prolongation of QTc, I will stop antibiotics today. His COVID-19 test on presentation was negative. 4. Clinical volume depletion on presentation has improved. 5. Others. Continue bupropion for anxiety; levothyroxine for hypothyroidism; MiraLAX for constipation; tamsulosin for benign prostatic hypertrophy. I am holding his quetiapine because of mild QTc prolongation and will give him intravenous haloperidol as needed for dementia with behavioral disturbance. DISPOSITION: Finance Assistant has been working on finding a rehab place for him. I will try and reach out to his pharmacy teacher, Mr. Fraser, and updated him about the course. ADDENDUM: I called his pharmacy teacher but it went into his voicemail. I left a voice message. ADDENDUM: I received a all back from Mr. Evelio Morales and I discussed about the plan of care. He says he would like to be updated about Mr. Hahn's course in future as well. cc: Prosper Beltran MD [facility]
[2019-10-13] MEDS: TYLENOL PO SCH ×4 (03:37→20:32)
[2019-10-13] MEDS: LOVENOX SUBQ SCH (05:24)
[2019-10-13] MEDS: SYNTHROID PO SCH ×2 (05:26→06:05)
[2019-10-13 06:48] LABS: FREE T4 0.99 ng/dL (0.93-1.70)
[2019-10-13 07:00] LABS: TSH 9.89 uIUmL (0.27-4.20)
--- NOTE | 2019-10-13 07:21 | EKG Report ---
Test Performed on : 10/13/2019 06:42:14 AM Test Reason : Follow up heart rhythm Blood Pressure : / mmHG Vent. Rate : 055 BPM Atrial Rate : 129 BPM P-R Int : 000 ms QRS Dur : 084 ms QT Int : 466 ms P-R-T Axes : 000 -27 -48 degrees QTc Int : 445 ms Undetermined rhythm Septal infarct , age undetermined Abnormal ECG When compared with ECG of 12-OCT-2019 15:52, Current undetermined rhythm precludes rhythm comparison, needs review Septal infarct is now present Non-specific change in ST segment in Lateral leads T wave inversion less evident in Anterior leads Confirmed by Samia SOTELO, Manuel Narvaez ([id number]) on 10/14/2019 9:24:37 AM
[2019-10-13] MEDS: LOPRESSOR PO SCH (08:26)
[2019-10-13] MEDS: FLOMAX PO SCH (08:26)
[2019-10-13] MEDS: WELLBUTRIN XL PO SCH (08:26)
[2019-10-13] MEDS: MIRALAX PO SCH ×2 (08:27→20:33)
--- NOTE | 2019-10-13 11:21 | ECHO REPORT ---
ORDER DATE: 10/12/2019 INDICATION: Atrial flutter, COPD, coronary disease. FINDINGS: 1. Right atrium is mildly enlarged at 4.3 cm. 2. Mild tricuspid regurgitation. RV systolic pressure of 42. 3. Normal RV size and systolic function on poor views of the right ventricle. 4. No significant pulmonic insufficiency. 5. Mild left atrial enlargement with a dimension of 4.1 cm. 6. No mitral valve prolapse. Moderate mitral regurgitation. No mitral stenosis. 7. Normal LV size, end-diastolic dimension of 4.8 cm. Normal wall thicknesses with an intraventricular septal wall thickness of 0.9 cm. Normal LV systolic function with an estimated EF of 55-60%. 8. Aortic valve opens well. It is trileaflet. No evidence of stenosis or insufficiency. 9. Aorta appears normal in visualized segments. 10. No pericardial effusion seen. cc: MD Prosper Beard MD
--- NOTE | 2019-10-13 11:33 | Diag Imaging Result Doc PS360 ---
EXAM: CT THORAX W/O CONTRAST HISTORY: Dyspnea, inflammatory process TECHNIQUE: CT chest without contrast COMPARISON: 07/11/2018 FINDINGS: trace pleural fluid. The heart is enlarged on the current exam. Sternal wires are present. Severe atherosclerosis. There are many scattered calcified granuloma and there are calcified right hilar lymph nodes. Mildly prominent noncalcified mediastinal nodes. Severe emphysema. There is scarring in the right apex. There are infiltrates and scarring in the lower lungs. There are several tiny nodules in the right upper lobe which are not clearly identified on the prior exam. There is a fracture to the right humerus. IMPRESSION: 1.Severe emphysema and fibrosis with underlying infiltrates on the current study 2.There is evidence of a prior granulomatous infection 3.Development of cardiomegaly. There is also severe atherosclerosis. This exam was performed using automated exposure control, adjustment of mA or kV according to patient size, and/or use of iterative reconstruction technique. Electronically signed by Samy Espinosa 10/13/2019 11:31 AM
[2019-10-13] MEDS: CARDIZEM PO SCH ×2 (11:57→20:35)
[2019-10-13] MEDS: OXY IR PO PRN ×2 (12:02→20:32)
--- NOTE | 2019-10-13 12:13 | CARDIOLOGY CONSULTATION ---
DATE: 10/13/2019 REQUESTING PROVIDER: Consultation requested by the hospitalist service. REASON FOR CONSULTATION: Atrial fibrillation. HISTORY: Mr. Hahn is a 79-year-old, male who presented to the emergency room on October 06 with complaints of pain and swelling of the right arm. On testing, they had found that the patient actually had a fracture of the humerus. This happened in the upper mid humeral shaft. They consulted orthopedic surgery who are planning on nonoperative management of it, with immobilization and pain management. The patient was found to be in atrial fibrillation. The first electrocardiogram done on October 07 showed atrial fibrillation with low ventricular response or controlled ventricular response, rate of 68. Since then, his atrial fibrillation has essentially remained well controlled. They put a consultation with us to assist in the management. An echocardiogram was done yesterday that shows normal LV function. The patient denies having any chest pains. PAST MEDICAL HISTORY: Positive for severe coronary heart disease. On the records that we have from the office, the patient has had a prior diagnosis of sinus bradycardia, hypertension, coronary heart disease. He has had previous coronary artery bypass surgery. He has had also bilateral hip surgery. He has hypothyroidism and COPD. SOCIAL HISTORY: He is retired, . FAMILY HISTORY: Negative for any heart disease. HOME MEDICATIONS: At the time of this admission included Lipitor 40 mg at bedtime, bupropion 150 daily, Omnicef 300 twice a day, donepezil 10 mg daily, levothyroxine 1 tablet in the morning, meloxicam 1 tablet daily, Seroquel 50 mg at bedtime, Remeron 1 tablet at bedtime, Flomax 0.4 mg daily, tramadol 1 tablet 3 times a day. ALLERGIES: There are no allergies. REVIEW OF SYSTEMS: The review of systems is really difficult to ascertain. The patient seems to have issues with recollection. He admits to having fallen before and passing out. The current admission is likely to be secondary to a syncopal episode that he was not aware of or cannot recall. PHYSICAL EXAMINATION: Vital Signs: Blood pressure is 115/57, temperature 98 degrees, pulse 63, respirations 18. He is awake, follows commands. HEENT: Normal. Chest: Diminished breath sounds bilaterally. Heart sounds are irregularly irregular. Abdomen: Soft, nontender. Extremities: Showed decreased pulses. No peripheral edema. Neurological Examination: He follows commands. Moves 4 extremities. BLOOD WORK: Sodium 138, potassium 3.9, BUN 15, creatinine 0.7. Hemoglobin 14.6. TSH 9.89. Chest x-ray done shows COPD and left lower lung zone opacity suggesting pneumonia. A chest CT has been requested this morning and it shows definite indication of pulmonary fibrosis with multiple cystic areas and advanced COPD as well as infiltrates bilaterally, consistent with bilateral pneumonia. His C-reactive protein on admission was 42.02 mg/L. IMPRESSION: 1. Patient who has atrial fibrillation with "controlled response". 2. Fracture of the right humerus. This may be secondary to a syncopal episode. 3. Bilateral pneumonia on top of advanced chronic obstructive pulmonary disease plus pulmonary fibrosis. 4. Urinary tract infection, Serratia marcescens. 5. The patient is likely to have dementia. RECOMMENDATION: At this time, from the cardiac viewpoint, I would suggest to try low dose Cardizem. If the patient remains with a low ventricular response, he may not need it. He is currently on low-dose metoprolol and that seems to be controlling his heart rate very well. The patient is likely to have sick sinus syndrome and he may have fallen after having a syncopal episode. He may actually need a permanent pacemaker. However, at this time, we will really need to document sinus arrest before prescribing that type of intervention. We will observe his course. We will probably discharge the patient with an implantable loop recorder and we will arrange for followup. At this time, because of the dementia and the possible tendency to fall, he may not be an ideal candidate for prevention of stroke with anticoagulant. I will discuss this with the hospitalist service. cc: Reg Coronado MD
--- NOTE | 2019-10-13 12:58 | PROGRESS NOTE ---
DATE: 10/13/2019 SUBJECTIVE: The patient refers to be doing well. Denies any new complaints today. Mr. Hahn does not remember the circumstances from which he fell. His right upper extremity is an orthopedic sling. OBJECTIVE: Current Vital Signs: Blood pressure is 119/60, pulse of 65, respirations are 20, temperature is 97.7 degrees. General Examination: Mr. Hahn is a 79-year-old, male. He is in bed. He is not in any cardiopulmonary distress. HEENT: Mucosa is pink and moist. Anicteric. Acyanotic. Neck: Supple. Chest: Air entry is bilaterally reduced. A few fine crackles in the posterior lung boogie. Cardiovascular: Irregularly irregular but rate controlled. GI: Abdomen is soft. Extremities: No pedal edema. CONSULTANT INTERN: The patient is awake, alert. He is oriented to person. Disoriented to place and time but sustained a very rational conversation. Right upper extremity is in an orthopedic sling. Laboratory Data: From yesterday has been reviewed. Patient's TSH is minimally elevated. However, free T4 is normal. A CTA of the lungs this morning shows severe emphysema and fibrosis with underlying infiltrates on current study. There is development of cardiomegaly. There is also severe atherosclerosis. The patient's echocardiogram which was done yesterday shows a right ventricular systolic pressure of 42, left ventricular ejection fraction of 55 to 60 percent. Normal wall thickness. No other valvular abnormality noted. ASSESSMENT: 1. Atrial flutter/variable atrial fibrillation. The patient is currently on metoprolol and Cardizem. He has been evaluated by cardiology. 2. Acute hypoxemic respiratory failure on presentation with bibasilar infiltrates, more on the left than the right. The patient has completed antibiotic therapy. 3. Status post mechanical fall resulting in a right humeral shaft fracture. Patient has been evaluated by orthopedics. 4. Hypothyroidism. The patient is on Synthroid. TSH was slightly elevated on admission. PLAN: In general, I think Mr. Hahn seems to be fairly stable. We are pending a rehab placement for him. We are going to continue with his current medications. He has been evaluated by cardiology and they anticipate that he gets discharged with recommendations to have a Holter monitor/event recorder to diagnose a paroxysmal heart rhythm abnormality which could have been the cause of his fall. cc: Jude Sanderson MD [facility]
[2019-10-13] MEDS: ELIQUIS PO SCH (20:33)
[2019-10-14] MEDS: CARDIZEM PO SCH ×4 (00:19→15:17)
[2019-10-14] MEDS: LOPRESSOR PO SCH ×3 (00:19→20:59)
[2019-10-14] MEDS: OXY IR PO PRN ×2 (02:55→09:27)
[2019-10-14] MEDS: TYLENOL PO SCH ×3 (04:08→20:59)
[2019-10-14] MEDS: SYNTHROID PO SCH (06:30)
[2019-10-14 07:00] LABS: HEMATOCRIT 42.5 % (42.0-52.0); HEMOGLOBIN 14.7 g/dL (14.0-18.0); MCH 30.8 PG (27-31); MCHC 34.6 g/dL (33-37); MCV 88.9 FL (81-99); MPV 10.6 FL (7.4-10.4); RBC 4.78 XMIL (4.7-6.1); RDW 13.9 % (11.5-14.5); WBC 11.09 X1000 (4.8-10.8)
[2019-10-14 07:26] LABS: AGAP 16; BUN 18 mg/dL (8-22); CALCIUM 8.5 mg/dL (8.8-10.2); CHLORIDE 101 mmol/L (98-107); COSMO 280; CREATININE 0.7 mg/dL (0.7-1.2); ESTIMATED GFR > 60; GLUCOSE 84 mg/dL (70-104); POTASSIUM 3.7 mmol/L (3.5-5.1); SODIUM 140 mmol/L (136-145); TCO2 23 mmol/L (25-35)
--- NOTE | 2019-10-14 08:11 | EKG Report ---
Test Performed on : 10/14/2019 07:40:04 AM Test Reason : aflutter Blood Pressure : / mmHG Vent. Rate : 080 BPM Atrial Rate : 080 BPM P-R Int : 200 ms QRS Dur : 078 ms QT Int : 400 ms P-R-T Axes : 109 023 -74 degrees QTc Int : 461 ms Sinus rhythm. with premature supraventricular complexes. and with frequent premature ventricular comp lexes. Septal infarct (cited on or before 13-OCT-2019) Abnormal ECG When compared with ECG of 13-OCT-2019 06:42, (Unconfirmed) Previous ECG has undetermined rhythm, needs review Confirmed by Samia SOTELO, Manuel Narvaez ([id number]) on 10/14/2019 9:25:46 AM
--- NOTE | 2019-10-14 08:50 | CARDIOLOGY PROGRESS NOTE ---
DATE: 10/14/2019 CHIEF COMPLAINT: Shortness of breath, irregularity heartbeat. Pain in the shoulder. SUBJECTIVE: Mr. Hahn is feeling well. He says to me "I need to get out of here to back to work." He is evidently confused. C-reactive protein was checked again yesterday and it has gone up from 42.02 on the 8th to 64.18 on the 14th. His chest CT done yesterday shows severe emphysema and fibrosis with underlying infiltrates on the current study, evidence of prior granulomatous infection, and evidence of severe atherosclerosis. The patient has no pains at this time. He seems to be comfortable. OBJECTIVE: Vital signs: Temperature 98.3 degrees, pulse 62, respirations 16, blood pressure 110/50. His patient monitor indicates atrial fibrillation with controlled response. Neck veins are not distended. Chest: Reveals diminished breath sounds diffusely. I do not hear definite rales. Heart: Sounds distant, irregular, without gallop or murmur. Abdomen: Nontender. Extremities: Showed no edema. Neurologic exam: He follows commands. Moves 4 extremities. He has good strength. He is just confused to place, time. BLOOD WORK: White cell count 11,090, hemoglobin 14.7, hematocrit 42.5%. Sodium 140, potassium 3.7, BUN 18, creatinine 0.7. IMPRESSION: 1. Patient who presented with a fractured right humerus. This is probably secondary to a fall and the fall may be secondary to syncope. 2. Atrial fibrillation which may be permanent or chronic with suspected sick sinus syndrome. 3. Radiographic evidence of advanced chronic obstructive pulmonary disease with fibrosis and seemingly infiltrates that appear to be pneumonic. 4. Atherosclerosis with previous coronary artery bypass surgery. 5. Patient is likely to have dementia. RECOMMENDATIONS: At this time, I have discussed with Dr. Sanderson. Because of his positive UTI for Serratia marcescens and the abnormal CT of the chest, we might have to consider a longer coverage with antibiotics. I believe the patient will probably require discharge to a fpc facility to convalesce from his right humeral fracture because he lives by himself, and at some point we may have to discuss implantation of a permanent pacemaker. We may want to provide him with an implantable loop recorder monitor at the time of discharge so we can keep tabs whether or not he has recurrent pauses or heart block. We will follow him. cc: Reg Coronado MD [facility]
[2019-10-14] MEDS ORDERED: OMNICEF PO SCH (09:00)
[2019-10-14] MEDS: WELLBUTRIN XL PO SCH (09:26)
[2019-10-14] MEDS: MIRALAX PO SCH ×2 (09:26→20:59)
[2019-10-14] MEDS: FLOMAX PO SCH (09:27)
[2019-10-14] MEDS: ELIQUIS PO SCH ×2 (09:27→20:59)
--- NOTE | 2019-10-14 13:38 | PROGRESS NOTE ---
DATE: 10/14/2019 SUBJECTIVE: I have seen and examined Mr. Hahn this morning. Mr. Hahn refers to be doing well but he complains of pain in the right elbow. OBJECTIVE: Vital Signs: Blood pressure is 119/78, respirations are 18, temperature is 98.3 degrees, the patient was saturating 95% on room air. General Examination: Mr. Hahn is a 79- year-old, male. He is in bed. He is in some painful distress. HEENT: Mucosa is pink and moist. Anicteric. Acyanotic. Neck: Supple. Chest: Good air entry bilaterally. There were no crepitations. No rhonchi. Cardiovascular: Irregularly irregular but rate controlled. GI: Abdomen was soft, nontender. Bowel sounds were present. INTERIOR DECORATOR PAINTING: The patient is awake, alert, oriented to person and to place. Disoriented to time. Musculoskeletal: The right upper extremity is an orthopedic sling. The elbow and the distal forearm look remarkably erythematous and tender. ASSESSMENT: 1. Atrial flutter with variable blocks vs atrial fibrillation. The patient is currently on metoprolol and Cardizem, and is rate-controlled. 2. Acute hypoxemic respiratory failure on presentation, improved. 3. Bibasilar infiltrate concerning for pneumonia. Patient had completed 7 days of Levaquin. Unfortunately, his white cell count has gone up slightly this morning. A CT scan which was done yesterday seems to suggest infiltrate still. We are going to continue with the antimicrobial coverage. 4. Hypothyroidism. Patient is on Synthroid. 5. Status post mechanical fall resulting in a right humeral shaft fracture. 6. Left elbow swelling associated with erythematous changes, concerning for cellulitis. We will start the patient on Ancef and doxycycline for methicillin-resistant Staphylococcus aureus coverage. We will also be pending orthopedics to reevaluate the elbow joint to make sure it is not infected. 7. Syncopal episode at home. Cardiology plans to have the heart monitor outpatient. cc: MD SHAILA Hagen
[2019-10-14] MEDS: KEFZOL 1 GM/D5W 1 GM/50 ML IVPB IV SCH (17:47)
[2019-10-14] MEDS: DOXYCYCLINE 100 MG in NS 250 ML IV SCH (17:51)
[2019-10-15] MEDS ORDERED: CALMOSEPTINE OINTMENT TOP PRN (02:30)
[2019-10-15] MEDS: CARDIZEM PO SCH ×5 (02:41→16:01)
[2019-10-15] MEDS: KEFZOL 1 GM/D5W 1 GM/50 ML IVPB IV SCH ×2 (02:43→12:57)
[2019-10-15] MEDS: TYLENOL PO SCH ×2 (04:34→12:35)
[2019-10-15] MEDS: OXY IR PO PRN ×2 (04:35→12:35)
[2019-10-15] MEDS: DOXYCYCLINE 100 MG in NS 250 ML IV SCH (05:35)
[2019-10-15] MEDS: SYNTHROID PO SCH (07:06)
[2019-10-15 07:21] LABS: BASO# 0.04 X1000 (0.0-0.2); BASO% 0.3 % (0.0-0.8); EOS# 0.34 X1000 (0.0-0.7); EOS% 2.9 % (0.0-10.0); HEMATOCRIT 44.8 % (42.0-52.0); HEMOGLOBIN 15.1 g/dL (14.0-18.0); IMM GRAN# 0.05 X1000 (0.0-0.04); IMM GRAN% 0.4 % (0.0-0.5); LYMPH# 1.61 X1000 (1.2-3.4); LYMPH% 13.5 % (20.5-51.1); MCH 29.9 PG (27-31); MCHC 33.7 g/dL (33-37); MCV 88.7 FL (81-99); MONO% 8.4 % (1.7-9.3); MPV 10.3 FL (7.4-10.4); NEUT# 8.86 X1000 (1.4-6.5); NEUT% 74.5 % (42.2-75.2); PLT 234 X1000 (130-400); RBC 5.05 XMIL (4.7-6.1); RDW 13.9 % (11.5-14.5)
[2019-10-15 07:34] LABS: AGAP 14; ALBUMIN 3.3 g/dL (3.5-5.0); BUN 18 mg/dL (8-22); CALCIUM 8.9 mg/dL (8.8-10.2); CHLORIDE 99 mmol/L (98-107); COSMO 274; CREATININE 0.7 mg/dL (0.7-1.2); ESTIMATED GFR > 60; GLUCOSE 94 mg/dL (70-104); PHOSPHORUS 2.6 mg/dL (2.7-4.5); POTASSIUM 3.9 mmol/L (3.5-5.1); SODIUM 136 mmol/L (136-145); TCO2 23 mmol/L (25-35)
[2019-10-15 08:22] LABS: C REACTIVE PROT QUANT 57.51 mg/L (0.00-5.00)
--- NOTE | 2019-10-15 12:23 | PROGRESS NOTE ---
DATE: 10/15/2019 SUBJECTIVE: I have seen and examined Mr. Hahn this morning. Mr. Hahn refers to be doing well. He looked quite confused. He was pulling his hospital gown and throwing. He had already taken off his Pampers. OBJECTIVE: Vital signs: Blood pressure 117/58, pulse of 68, respirations 18, and temperature is 97.9 degrees. General: Mr. Hahn is a 79-year-old elderly male. He is in bed. He does not seem to be in any cardio pulmonary distress. HEENT: Mucosa is pink and moist. Anicteric. Acyanotic. Neck: Supple. Extremities: The right upper extremity is in an orthopedic sling. Chest: Good air entry bilaterally. There were no crepitations. No rhonchi. Cardiovascular: Irregularly irregular, but rate controlled. Abdomen: Soft. KILNMAN: Patient was awake, alert, and oriented to person but disoriented to place and time. He was quite fidgety and very inattentive. The right arm distally extending to the upper proximal part of the forearm. It is remarkably edematous and tender, and erythematous with questionable involvement of the elbow joint. LABORATORY DATA: WBC is 11.90. Rest of CBC is normal. Chemistry is also completely within normal range. C-reactive protein is trending down. ASSESSMENT: 1. Atrial flutter with variable blocks versus atrial fibrillation, currently rate controlled. Patient is on metoprolol and Cardizem. Cardiology is on board. 2. Acute hypoxemic respiratory failure on presentation resolved. 3. Bilateral lower lobe pneumonia. Patient was treated for 7 days with Levaquin. He is currently on Ancef and doxycycline for cellulitis to the right arm, but I think that will also cover if there is any residual pneumonia. 4. Hypothyroidism. Patient is on Synthroid. 5. Status post mechanical fall resulting in a right humeral shaft fracture. The patient is in an orthopedic sling. 6. Right distal arm and proximal forearm as well as elbow erythematous changes concerning for cellulitis. The patient is on doxycycline and Ancef. There is concern if the elbow joint is involved so orthopedics have been reconsulted for evaluation before he is discharged. 7. Syncopal episode at home. Cardiology plans to do Holter monitoring on outpatient. 8. Delirium associated with prolonged hospital stay. We will use very sparingly antipsychotic if needed. For now, we will continue nonpharmacological measures. In general, I think Mr. Hahn is fairly stable. He still continues to be on IV antibiotics. We are pending final evaluation from orthopedics on the hand. If they feel strongly that the elbow or the olecranon bursa is not involved, I think we can potentially discharge Mr. Hahn to rehab. cc: Jude Sanderson MD [facility]
[2019-10-15] MEDS: ELIQUIS PO SCH (12:32)
[2019-10-15] MEDS: FLOMAX PO SCH (12:32)
[2019-10-15] MEDS: LOPRESSOR PO SCH (12:33)
[2019-10-15] MEDS: WELLBUTRIN XL PO SCH (12:33)
[2019-10-15] MEDS: MIRALAX PO SCH (12:33)
--- NOTE | 2019-10-15 12:43 | ORTHOPAEDICS PROGRESS NOTE ---
DATE: 10/15/2019 SUBJECTIVE: The patient is a 79-year-old male who is admitted to the hospital 10/08/2019 with right elbow pain and discomfort, as well as cellulitis and left lower lobe pneumonia. X-rays did reveal a nondisplaced proximal humeral shaft fracture. The patient has continued with some swelling. He has remained afebrile. He has expected tenderness. PHYSICAL EXAMINATION: His right upper extremity has diffuse swelling throughout the upper arm and down to the elbow region. There is some erythema on the upper arm. It is compressible. His compartments are soft. He is able to flex all the fingers. With his arm by his side he has full flexion, extension, supination and pronation of the elbow. He has good capillary refill distally. His white count is 11.90. IMPRESSION: Right nondisplaced proximal humeral fracture. PLAN: At this point, there are no signs or symptoms of septic joint. The patient does have some significant swelling right extremity which is to be expected with his proximal humeral fracture. Will recommend treatment symptomatically at this time. Encourage range of motion of the elbow, wrists and fingers. Avoid any active elevation of his right shoulder and be nonweightbearing. Would recommend repeat x-ray in 10-14 days. He is stable from an orthopedic standpoint. cc: Chase Kent MD
--- NOTE | 2019-10-15 14:33 | DISCHARGE SUMMARY ---
ADMISSION DATE: 10/07/2019 DISCHARGE DATE: 10/15/2019 DISPOSITION: [facility]. FOLLOWUP: 1. Dr. Batista. 2. Dr. Hahn. 3. Dr. Kent. 4. [facility] medical staff. CONSULTATIONS DURING THIS ADMISSION: 1. Orthopedics was consulted. Patient was seen by Dr. Kent. 2. Cardiology was consulted. Patient was seen by Dr. Coronado. INVASIVE PROCEDURES DONE DURING THIS ADMISSION: None. IMAGING STUDIES OF SIGNIFICANCE: 1. A Doppler ultrasound of the right arm showed no evidence of DVT. 2. Elbow x-ray showed just soft tissue edema but no evidence of acute issues. 3. Chest x-ray did show COPD and left lung zone opacity suggesting pneumonia. 4. Upper extremity CT scan showed fracture of the humerus. 5. An echocardiogram did show an ejection fraction of 55% to 60%. 6. A CT scan of the chest showed severe emphysema and fibrosis with underlying infiltrates. No evidence of prior granulomatous disease. ADMISSION DIAGNOSES: 1. Right elbow cellulitis. 2. Left lower lobe pneumonia. 3. Volume depletion. 4. Metabolic encephalopathy. DIAGNOSES AT THE TIME OF DISCHARGE: 1. Altered mental status on presentation secondary to global encephalopathy, improved. 2. Delirium associated with prolonged hospitalization on a background of dementia. 3. Atrial flutter with variable blocks versus atrial fibrillation. Suspicion of sick sinus syndrome. 4. Acute hypoxemic respiratory failure on presentation, resolved. 5. Bilateral lower lobe pneumonia. 6. Hypothyroidism. 7. Status post mechanical fall resulting in a right humeral shaft fracture. 8. Right distal arm and proximal forearm cellulitis. The patient has been evaluated by orthopedics and they do not think there is any involvement of the joint. 9. Syncopal episode at home. The patient is going to be followed up with cardiology. There is a plan for outpatient monitoring. 10. Serratia marcescens urinary track infection, resolved, completely treated. DISCHARGE MEDICATIONS: 1. Bupropion 150 daily p.o. daily. 2. Iron sulfate 325 p.o. daily. 3. Acetaminophen. 4. Quetiapine 50 mg p.o. at bedtime. 5. Levothyroxine 50 mcg p.o. q.a.m. 6. Atorvastatin 40 mg p.o. at bedtime. 7. Donepezil 10 mg p.o. daily. 8. MiraLAX 17 g b.i.d. 9. Cardizem 120 p.o. daily. 10. Doxycycline 100 mg b.i.d. 11. Keflex 500 mg 3 times per day. 12. Metoprolol 25 mg b.i.d. 13. Oxycodone 5 mg p.o. q.6 p.r.n. 14. Eliquis 5 mg b.i.d. PRESENTING COMPLAINT: Right elbow pain. HISTORY OF PRESENT COMPLAINT: Mr. Hahn is a 79-year-old, male who has a history of COPD, coronary artery disease, status post CABG, hypothyroidism. Came to the emergency room because of referral from the healthcare provider. Apparently, Mr. Hahn has a history of dementia, has been getting more confused. Apparently, he fell and sustained some injury to the right upper extremity. Upon presenting to the emergency room, he was evaluated and was found to have a right humerus fracture. He was also found to have some suspicion of a urinary tract infection which we think was causing some of his altered mentation. He was also found on imaging studies to have a pneumonia. Mr. Hahn was admitted to the medical floor for further care. HOSPITAL COURSE: Mr. Hahn was admitted to the medical floor. He was initially started on broad-spectrum IV antibiotics which he continued to tolerate very well. Blood cultures came back negative. However, his urine came back positive for Serratia marcescens, which was sensitive to the antibiotics that he was already on. He was evaluated by orthopedics who recommended just conservative management for the right humerus fracture. X-rays were done. Doppler studies were also done to rule out any underlying DVT. The patient was also found to have atrial fibrillation/atrial flutter. Was evaluated by Dr. Coronado who thinks that Mr. Hahn could have a sick sinus syndrome and that will need to be evaluated on an outpatient basis with monitoring of the heart and possibly for EP evaluation. Throughout the hospital course, Mr. Hahn remained fairly stable. At the later part, he became a little bit agitated, slightly more combative, which we think is all related to delirium associated with the hospital stay on the background of his dementia. He is, however, easy to talk to. We think Mr. Hahn is fairly stable to go to the rehab to continue with physical rehabilitation. He has been seen on multiple occasions over here with physical therapy. Time spent for discharge is 38 minutes. cc: MD Betsy Hagen MD Peter Johnson, MD Robert S. Tapscott, MD
[2019-10-15 15:22] VITALS: BP 98/58
== END 2019-10-15 17:48 | DRG 193 ==
LOC: ED 16:26 → SUATTDRO 22:57 → 3N 22:57 → 4N 23:26
PROVIDERS: ATTEND Internal Medicine